=== PATIENT | male | born 1965 | race African-American/Black ===

== ENCOUNTER 2017-12-30 13:10 | Outpatient (CLI) | payer OTHER ==
--- NOTE | 2017-12-30 15:01 | MRI ---
LEFT KNEE MRI WITHOUT IV CONTRAST: History: 52-year-old male with history of degenerative disease of knee, left knee pain for five years, worseni ng over the last two years. Technique: Multiplanar, multisequence MRI examination of the left knee is performed. FINDINGS: There is very severe arthrosis and degenerative changes of all three compartments with total cartilag e loss of the medial compartment with some minimal subchondral cystic changes. There is also irregula r full thickness cartilage loss of the lateral tibial plateau and scattered areas within the femoral patellar compartment. There is very extensive hypertrophic osteophytosis involving all three compartm ents. There is some evidence for synovitis changes, particularly within the suprapatellar recess. The re is a somewhat loculated dilated popliteal hiatus containing multiple intraarticular bodies, one of which measures approximately 0.5 x 1.5 cm. There is probably an additional small intraarticular body in the medial suprapatellar recess. There is a very extensive complex slap tear of the medial menisc us involving almost the entire body and posterior horn with a displaced meniscal flap posteriorly ant erior to the posterior horn. Lateral meniscus demonstrates some free edge irregularity and intrasubst ance signal, evidence for degenerative change and focal fraying. Minimal intraosseous signal change i n the medial aspect of the intercondylar notch with adjacent marrow edema, evidence for an intraosseo us ganglial cyst. IMPRESSION: Severe tricompartment arthrosis and degenerative changes with full thickness irregular cartilage loss and very extensive hypertrophic osteophytosis, the cartilage loss is most marked in the medial beverley rtment. Extensive complex slap tear of the medial meniscus. Lateral meniscal fraying and degenerative change. Dilated multiloculated appearing popliteal hiatal containing several intraarticular bodies w ith at least one other intraarticular body noted in the medial popliteal recess. Small interosseous g anglial cyst noted in the posterior tibial intercondylar eminence near the posterior cruciate ligamen t and evidence for an intraosseous ganglial cyst with some very minimal adjacent marrow edema. POS: [facility]
== END 2017-12-30 13:11 | disposition home or self-care (01) ==
LOC: BICMRI 13:10
PROVIDERS: ATTEND Internal Medicine
DX: M17.12 Unilateral primary osteoarthritis, left knee (principal); M25.561 Pain in right knee; M25.562 Pain in left knee; M25.762 Osteophyte, left knee; S83.242A Other tear of medial meniscus, current injury, left knee, initial encounter; M67.462 Ganglion, left knee; R60.0 Localized edema

== ENCOUNTER 2018-05-02 00:23 | Outpatient (CLI) | payer OTHER ==
[2018-05-02 12:27] LABS: Hemoglobin 15.2 g/dL (14.0-18.0); Mean Corpuscular HGB CONC 33.3 g/dL (32.0-36.0); Mean Corpuscular Hemoglobin 29.2 pg (27.0-31.0); Mean Corpuscular Volume 87.8 fL (78.0-98.0); Mean Platelet Volume 8.9 fL (7.4-10.4); Platelet Count 218 thou/uL (130-400); RBC Distribution Width 12.2 % (11.5-14.5); Red Blood Cell (RBC) Count 5.22 mill/uL (4.70-6.10); White Blood Cell (WBC) Count 8.2 thou/uL (4.8-10.8)
[2018-05-02 12:31] LABS: Anion Gap 14 mmol/L (10-20); BUN (Urea Nitrogen) 12 mg/dL (8.4-25.7); Calc. Creatinine Clearance 0 mL/min (70-130); Calcium 9.2 mg/dL (7.8-10.44); Carbon Dioxide 22 mmol/L (22-29); Chloride 103 mmol/L (98-107); Estimated GFR-MDRD 89; Glucose 254 mg/dL (70-105); Potassium 3.7 mmol/L (3.5-5.1); Sodium 135 mmol/L (136-145)
[2018-05-02 12:33] LABS: Bilirubin Negative (Negative); Blood, Urine Negative (Negative); Clarity CLEAR (Clear); Glucose, Urine (Dipstick) >=1000 mg/dL (Negative); Leukocyte Negative (Negative); Nitrite Negative (Negative); Protein, Urine (Dipstick) Negative (Neg-Trace); Specific Gravity, Urine 1.011 (1.002-1.036); Urobilinogen 0.2 mg/dL (0.2-1.0)
[2018-05-02 12:36] LABS: Bacteria/HPF None Seen HPF (None Seen); Hyaline Casts/LPF 0-3 HYALINE CAST LPF (0-3 Hyaline); Pathc Cast-AUWi Flag 0.43 (0-2.49); RBC/HPF None Seen HPF (0-3); Squamous Epithelial None Seen HPF (0-3); WBC/HPF None Seen HPF (0-3)
--- NOTE | 2018-05-03 07:45 | EKG ---
Test Reason : Blood Pressure : / mmHG Vent. Rate : 069 BPM Atrial Rate : 069 BPM P-R Int : 158 ms QRS Dur : 088 ms QT Int : 430 ms P-R-T Axes : 056 036 055 degrees QTc Int : 460 ms Normal sinus rhythm Normal ECG No previous ECGs available Confirmed by BERNARDA SHABAZZ ([id number]) on 05/03/2018 7:45:36 AM Referred By: SANCHEZ Confirmed By:BERNARDA SHABAZZ
== END 2018-05-02 00:24 | disposition home or self-care (01) ==
LOC: LABBT 00:23
PROVIDERS: ATTEND Orthopaedic Surgery
DX: Z01.818 Encounter for other preprocedural examination (principal); M17.12 Unilateral primary osteoarthritis, left knee
CPT/HCPCS: 80048; 81001; 85027; 87081; 93005; 93010

== ENCOUNTER 2018-07-06 08:43 | Outpatient (CLI) | payer OTHER ==
[2018-07-06 09:15] LABS: Hemoglobin 15.5 g/dL (14.0-18.0); Mean Corpuscular HGB CONC 32.5 g/dL (32.0-36.0); Mean Corpuscular Volume 89.1 fL (78.0-98.0); Mean Platelet Volume 8.2 fL (7.4-10.4); Platelet Count 217 thou/uL (130-400); RBC Distribution Width 12.9 % (11.5-14.5); Red Blood Cell (RBC) Count 5.36 mill/uL (4.70-6.10); White Blood Cell (WBC) Count 11.8 thou/uL (4.8-10.8)
[2018-07-06 09:19] LABS: Bilirubin Negative (Negative); Blood, Urine Negative (Negative); Clarity CLEAR (Clear); Glucose, Urine (Dipstick) Negative (Negative); Leukocyte Negative (Negative); Nitrite Negative (Negative); Protein, Urine (Dipstick) Negative (Neg-Trace); Specific Gravity, Urine 1.025 (1.002-1.036); Urobilinogen 0.2 mg/dL (0.2-1.0); pH, Urine 5.5 (5.0-9.0)
[2018-07-06 09:22] LABS: Bacteria/HPF None Seen HPF (None Seen); Hyaline Casts/LPF 0-3 HYALINE CAST LPF (0-3 Hyaline); Pathc Cast-AUWi Flag 0.27 (0-2.49); RBC/HPF 0-3 HPF (0-3); Squamous Epithelial 0-3 HPF (0-3); WBC/HPF 0-3 HPF (0-3)
[2018-07-06 09:37] LABS: Anion Gap 11 mmol/L (10-20); BUN (Urea Nitrogen) 16 mg/dL (8.4-25.7); Calc. Creatinine Clearance 0 mL/min (70-130); Calcium 9.4 mg/dL (7.8-10.44); Carbon Dioxide 30 mmol/L (22-29); Chloride 101 mmol/L (98-107); Estimated GFR-MDRD 80; Glucose 128 mg/dL (70-105); Potassium 3.7 mmol/L (3.5-5.1); Sodium 138 mmol/L (136-145)
[2018-07-06 09:54] LABS: Eosinophils 1 % (0-10); Lymphocytes 25 % (21-51); MDiff Complete? YES; Monocytes 7 % (0-10); Neutrophil 66 % (42-75); Platelet Morphology Comment Appears Adequate; Polychromasia SLIGHT = 2-3 cells (100X) (0-2/hpf); Reactive Lymphocytes 1 % (0-10)
== END 2018-07-06 08:44 | disposition home or self-care (01) ==
LOC: LABBT 08:43
PROVIDERS: ATTEND Orthopaedic Surgery
DX: Z01.812 Encounter for preprocedural laboratory examination (principal); M17.12 Unilateral primary osteoarthritis, left knee
CPT/HCPCS: 80048; 81001; 85007; 85027

== ENCOUNTER 2018-07-07 08:45 | Inpatient (IN) | payer OTHER ==
[2018-07-06 08:58] VITALS: BMI 41.6
[2018-07-19] MEDS ORDERED: Sodium Chloride 0.9% 100 ML ONE ×2 (06:08→10:04)
[2018-07-19] MEDS ORDERED: Tranexamic Acid 1,000 MG/10 ML VIAL ONE ×2 (06:08→10:03)
[2018-07-19] MEDS ORDERED: Fentanyl 100 MCG/2 ML VIAL ONE ×5 (06:24→10:21)
[2018-07-19] MEDS ORDERED: Midazolam HCl 2 mg/2 ml Vial ONE (06:24)
[2018-07-19] MEDS ORDERED: Levofloxacin 500 mg/D5W 100 ml Premix Bag ONE (06:39)
[2018-07-19] MEDS ORDERED: Clindamycin/D5W 900 mg/50 ml Premix Bag ONE (06:39)
[2018-07-19] MEDS ORDERED: traMADol HCl 50 MG TAB PO PRN ×2 (07:08→09:27)
[2018-07-19] MEDS ORDERED: Ropivacaine HCl/PF 250 ML in Premix Bag 1 BAG NERVE BLCK SCH (07:08)
[2018-07-19] MEDS ORDERED: Ondansetron PF 4 MG/2 ML Vial IVP PRN ×2 (07:08→09:27)
[2018-07-19] MEDS ORDERED: Fentanyl 100 MCG/2 ML VIAL SLOW IVP PRN ×2 (07:08→09:27)
[2018-07-19] MEDS ORDERED: Zolpidem Tartrate 5 MG TAB PO PRN ×2 (07:08→09:27)
[2018-07-19] MEDS ORDERED: HYDROcodone/Acetaminophen 10/325 mg Tablet PO PRN ×3 (07:08→09:27)
[2018-07-19] MEDS ORDERED: Promethazine HCl 25 MG/ML VIAL IM PRN ×2 (07:08→09:27)
[2018-07-19] MEDS ORDERED: Bupivacaine/Epinephrine 0.25% 30 ML VIAL ONE (07:27)
[2018-07-19] MEDS ORDERED: diphenhydrAMINE 25 MG CAP PO PRN (09:27)
[2018-07-19] MEDS ORDERED: Acetaminophen 325 MG TAB PO PRN (09:27)
[2018-07-19] MEDS ORDERED: Tranexamic Acid 1,000 MG in Sodium Chloride 0.9% 100 ML IVPB SCH (09:45)
--- NOTE | 2018-07-19 09:55 | RAD ---
Left knee 2 view CLINICAL HISTORY: Total knee replacement, postoperative evaluation FINDINGS: Left knee arthroplasty is in place without hardware complication. Postprocedural soft tissu e findings are seen. IMPRESSION: Postoperative left knee, without acute hardware complication.
[2018-07-19] MEDS: Ketorolac Tromethamine 30 MG/ML VIAL IVP SCH ×3 (11:07→23:41)
[2018-07-19] MEDS ORDERED: Aspirin 81 mg Enteric Coated Tablet PO SCH (11:15)
[2018-07-19] MEDS: Clindamycin/D5W 900 MG in Premix Bag 1 BAG IVPB SCH ×2 (13:46→20:21)
[2018-07-19] MEDS ORDERED: Ketorolac Tromethamine 30 MG/ML VIAL IVP SCH (14:00)
[2018-07-19] MEDS ORDERED: Ropivacaine 0.2% HCl/PF (40 MG/20 ML VIAL) ONE (14:15)
[2018-07-19] MEDS ORDERED: Ropivacaine 0.5% HCl/PF (150 MG/30 ML VIAL) ONE (14:15)
--- NOTE | 2018-07-19 14:20 | HP ---
HISTORY OF PRESENT ILLNESS: Mr. Rodriges is a pleasant 53-year-old male with left knee pain, history of gastric sleeve, history of stroke, disabled who desires pain relief. Conservative measures failed. Pain from zero to 10, 10/10 with ambulation. The patient is walking and can only walk short distances with pain. PAST MEDICAL HISTORY: Includes hypertension, TIA/stroke, previous eye procedures. PAST SURGICAL HISTORY: Shoulder surgery, left gastric sleeve. ALLERGIES: PENICILLIN. MEDICATIONS: Include: 1. Aspirin. 2. Gabapentin. 3. Hydrochlorothiazide/lisinopril. 4. Metformin. 5. Tramadol. SOCIAL HISTORY: Disabled. The patient is nonsmoker. History of no current alcohol. PHYSICAL EXAMINATION: GENERAL: Alert and oriented male, in no acute distress. Resting in bed. EXTREMITIES: Left lower extremity; 0 to 120. Small effusion. Moderate varus angulation. Tender to palpation. He has brisk cap refill. Palpable dorsalis pedis pulse. Sensation and motor intact distally. Able to straight leg raise. IMAGING STUDIES: X-ray showing tricompartmental osteoarthritis of the knee. IMPRESSION: Left knee osteoarthritis with above medical comorbidities. ASSESSMENT AND PLAN: The patient will be taken to the OR for left total knee arthroplasty. I discussed with the patient risks and benefits of surgery, pain, scar, bleeding, infection, damage to vital structures, need for further surgery, blood clots, loss of life or limb. The patient understood the risks and benefits and elected to proceed left total knee arthroplasty. The patient received clindamycin, vancomycin, Levaquin preoperatively. On-call to the OR n.p.o., He will be discharged home with outpatient therapy. Job ID: [id number] [facility]
[2018-07-19] MEDS ORDERED: PROPOFOL 200 MG/20 ML VIAL ONE (14:38)
[2018-07-19] MEDS ORDERED: Rocuronium Bromide 10 MG/ML (10ML VIAL) ONE (14:38)
[2018-07-19] MEDS ORDERED: Ondansetron PF 4 MG/2 ML Vial ONE (14:38)
[2018-07-19] MEDS ORDERED: ePHEDrine 50 MG/ML VIAL ONE (14:38)
[2018-07-19] MEDS ORDERED: Ketorolac Tromethamine 30 MG/ML VIAL ONE (14:38)
[2018-07-19] MEDS ORDERED: Dextrose 5% in Water 1,000 ML IV PRN (16:39)
[2018-07-19] MEDS ORDERED: HumaLOG 300 UNITS/3 ML VIAL SC PRN (16:39)
[2018-07-19] MEDS ORDERED: Dextrose 50% Abboject 50 ML SYRINGE SLOW IVP PRN (16:39)
--- NOTE | 2018-07-19 17:28 | PRG ---
DATE OF SERVICE: 07/19/2018 SUBJECTIVE: Mr. Rodriges is a very pleasant 53-year-old male with past medical history significant for prior CVA in 2002 with resulting right upper and lower extremity weakness, untreated obstructive sleep apnea, type 2 diabetes mellitus, and obesity, who presented to the hospital for elective left total knee arthroplasty with Dr. Aguirre. The patient underwent his procedure this morning. He was seen postoperatively on the floor. He denies any chest pain or shortness of breath. He denies any palpitations. He has no nausea. He states that his pain is well under control and currently rates it as a 3. The patient has been up out of his bed twice since his procedure. He has no complaints at this time. OBJECTIVE: VITAL SIGNS: Blood pressure 148/82, pulse is 62, temp 97.5, O2 saturation is 95% on room air. GENERAL: The patient is a moderately obese male, resting comfortably in bed, in no acute distress. HEENT: Head, atraumatic and normocephalic. Mucous membranes are moist. Extraocular movements intact. NECK: Supple. No lymphadenopathy. No JVD. CV: S1 and S2. Regular rate and rhythm. No appreciable murmurs, rubs, or gallops. LUNGS: Regular respiratory rate and pattern. Clear to auscultation bilaterally. ABDOMEN: Positive bowel sounds. Soft, nontender. Mildly obese. No masses. EXTREMITIES: No appreciable pitting edema. The left knee is wrapped and bandages in place. NEUROLOGIC: Cranial nerves 2 through 12 are grossly intact. The patient does have some mild right-sided weakness, which is chronic known finding for him. LABORATORY DATA: From July 06, 2018, white blood cell count 11.8, hemoglobin 15.5, hematocrit 47.7, platelet count is 217. Sodium 138, potassium 3.7, chloride 101 , BUN 16, creatinine 0.98, glucose 128. ASSESSMENT: 1. Status post left total knee arthroplasty with Dr. Aguirre today. 2. Type 2 diabetes mellitus. 3. Prior cerebrovascular accident affecting right upper and lower extremity in 2002. 4. Untreated sleep apnea. 5. Hypertension. PLAN: We will continue current pain management regimen as outlined by Dr. Aguirre. I will add a.c. and h.s. Accu-Cheks, along with mild sliding scale insulin. We will continue the patient's home blood pressure medication regimen. I will also continue aspirin. I did have a long discussion with the patient regarding why he is not on a statin at this time. He cannot recall why he is not on a statin, but I will obtain a CMP in the morning and certainly a low-dose statin would be indicated in this patient given his previous history of stroke along with his diabetes. We will continue to follow this patient along with you. The care of this patient has been discussed with Dr. Carlson, who agrees with the above. Job ID: [id number] [facility]
[2018-07-19] MEDS: Dextrose 5 %-0.45 % NaCl 1,000 ML IV SCH ×2 (18:19→20:50)
[2018-07-19] MEDS: traMADol HCl 50 MG TAB PO PRN (18:19)
[2018-07-19] MEDS: Aspirin 81 mg Enteric Coated Tablet PO SCH (20:20)
[2018-07-19] MEDS ORDERED: metFORMIN 500 MG TAB PO SCH (22:45)
[2018-07-20] MEDS: traMADol HCl 50 MG TAB PO PRN ×4 (02:48→20:30)
[2018-07-20 05:14] LABS: Mean Corpuscular HGB CONC 32.4 g/dL (32.0-36.0); Mean Corpuscular Hemoglobin 28.9 pg (27.0-31.0); Mean Corpuscular Volume 89.2 fL (78.0-98.0); Mean Platelet Volume 8.7 fL (7.4-10.4); Platelet Count 150 thou/uL (130-400); RBC Distribution Width 12.4 % (11.5-14.5); Red Blood Cell (RBC) Count 4.15 mill/uL (4.70-6.10); White Blood Cell (WBC) Count 11.2 thou/uL (4.8-10.8)
[2018-07-20 05:32] LABS: ALT (SGPT) Less than 7 U/L (8-55); AST (SGOT) 10 U/L (5-34); Albumin 3.3 g/dL (3.5-5.0); Alkaline Phosphatase 62 U/L (40-150); Anion Gap 11 mmol/L (10-20); BUN (Urea Nitrogen) 15 mg/dL (8.4-25.7); Bilirubin, Total 1.2 mg/dL (0.2-1.2); Calc. Creatinine Clearance 203 mL/min (70-130); Calcium 8.3 mg/dL (7.8-10.44); Carbon Dioxide 25 mmol/L (22-29); Chloride 101 mmol/L (98-107); Estimated GFR-MDRD 88; Globulin 2.4 g/dL (2.4-3.5); Glucose 138 mg/dL (70-105); Potassium 3.8 mmol/L (3.5-5.1); Protein, Total 5.7 g/dL (6.0-8.3); Sodium 133 mmol/L (136-145)
[2018-07-20] MEDS: Ketorolac Tromethamine 30 MG/ML VIAL IVP SCH ×4 (05:54→23:30)
[2018-07-20] MEDS: Dextrose 5 %-0.45 % NaCl 1,000 ML IV SCH ×2 (05:55→14:38)
[2018-07-20] MEDS: Aspirin 81 mg Enteric Coated Tablet PO SCH ×2 (08:04→20:28)
[2018-07-20] MEDS: Lisinopril 10 MG TAB PO SCH (08:04)
[2018-07-20] MEDS: Hydrochlorothiazide 25 MG TAB PO SCH (08:04)
[2018-07-20] MEDS: Ferrous Gluconate 324 MG TAB PO SCH ×2 (08:05→17:43)
[2018-07-20] MEDS: Senokot S 8.6-50 MG TAB PO SCH ×2 (08:05→20:27)
[2018-07-20] MEDS: Multivitamin W/ Minerals 1 TAB PO SCH (08:05)
--- NOTE | 2018-07-20 08:40 | OP ---
DATE OF PROCEDURE: 07/19/2018 PREOPERATIVE DIAGNOSIS: Left knee osteoarthritis. POSTOPERATIVE DIAGNOSIS: Left knee osteoarthritis. PROCEDURE PERFORMED: Left total knee arthroplasty. STATIONARY ENGINEER: Taye Arguelles PA-C. ANESTHESIOLOGIST: Dr. Garcia. ANESTHESIA: The patient received a general endotracheal intubation with adductor canal, single shot sciatic. ESTIMATED BLOOD LOSS: 100 mL. TOURNIQUET TIME: 73 minutes at 300 mmHg. ANTIBIOTICS: Clindamycin 900, Levaquin 500, vancomycin 2 g. The patient received TXA 1 g. IMPLANTS: Jase Triathlon size 7 CR femur, size 7 x 11 mm CS insert, triathlon X3, a triathlon tibial base plate size 7, and A32 patella. COMPLICATIONS: None. HISTORY OF PRESENT ILLNESS: Mr. Rodriges is a 53-year-old male with multiple medical problems, who has obesity, bariatric surgery, diabetes, history of hypertension, stroke in the past. The patient had left knee osteoarthritis that affected the patient's ability to walk and difficulty with mobility. I discussed with the patient risks and benefits of left total knee arthroplasty include pain, scar, bleeding, infection, damage to vital structures, decreased range of motion and strength, nonunion, malunion, fracture above and below, need for revision, loss of life or limb. He understood the risks and benefits and elected to proceed. DESCRIPTION OF PROCEDURE: Time-out was performed designating the patient's left lower extremity as an operative site based on site, consents, and marking. After time-out, the patient's lower extremity was prepped and draped in sterile fashion. The patient had an anterior incision medial parapatellar approach, excised fat pad, medial soft tissue release, exposed distal femur. I mapped the femur, cut 0 degrees of varus and valgus, 4 degrees of slope 9 and 9. We then placed our 3-degree external rotation guide, pinned into position, sized to a 7, cut to size 7, anterior, posterior, and chamfer cuts, removed the osteophytes. Then used our pickle fork, released the patient's PCL to expose the tibia. Exposed and cut, protecting with a pickle fork cut, mapped out the tibia cut at 0 degrees of varus and valgus 2 and 8 respectfully, removed osteophytes. We then placed a laminar control clerk food and beverage and removed the medial and lateral menisci osteophytes posteriorly, we exposed the tibia, placed our tibial tray inline with tibial tubercle anterior 1/3 down to the second ray. We pinned our poly into position. We then went in from 9 up to 11. We trialed the 11 and had good varus and valgus stability. Anterior-posterior drawer had good overall full extension, good flexion, and I liked the overall position of the tibial tray. We then drilled our lug, cut our keel for tibia, everted our patella, cut it down from 28 down to about 14 mm, placed the A32 patella. The patient's patella tracked well. We then washed. We cut our keel and drilled the lugs for femur removed, all implants washed, controlled the bleeding. We then everted, we placed our tibia in place, removed excess cement and placed our poly and cleaned up the femur, cemented our femur in place, removed excess cement, placed our A32 patella, removed excess cement. Next, we flexed the knee and ensured we had removed all the excess cement and had good overall position of the trays, we then removed, washed. We closed the medial patellar arthrotomy with #2 Vicryl, 2 Quill, 0 Quill, 2-0 Quill and glue. The patient will be admitted per [facility] protocol, receive antibiotics postoperative, followup in house. Job ID: [id number]
--- NOTE | 2018-07-20 11:43 | PDOC.PN ---
- Subjective Encounter Start Date: 07/20/18 Encounter Start Time: 08:00 -: old records requested/rev Patient seen and examined. No new complaints. No overnight events - Objective MAR Reviewed: Yes Vital Signs & Weight: Vital Signs (12 hours) Temp Pulse Resp BP BP Pulse Ox 07/20/18 08:24 99.8 F H 67 20 151/92 H 98 07/20/18 08:04 151/92 H 07/20/18 04:00 97.9 F 67 18 133/73 95 07/20/18 00:46 99.4 F 73 18 133/66 94 L Weight Admit Weight 333 lb Weight 333 lb I&O: 07/19/18 07/20/18 07/21/18 06:59 06:59 06:59 Intake Total 2370 Output Total 1250 Balance 1120 Result Diagrams: 07/20/18 04:47 07/20/18 04:47 Additional Labs: Accuchecks 07/20/18 07/19/18 06:04 21:05 POC Glucose 151 H 280 H Phys Exam - Physical Examination Constitutional: NAD HEENT: PERRLA, moist MMs, sclera anicteric Neck: no JVD, supple Respiratory: no wheezing, no rales, no rhonchi Cardiovascular: RRR, no significant murmur, no rub Gastrointestinal: soft, non-tender, no distention, positive bowel sounds obesity+ left knee with dressing Neurological: non-focal, normal sensation, moves all 4 limbs Lymphatic: no nodes Psychiatric: normal affect, A&O x 3 Skin: no rash, normal turgor Dx/Plan (1) Status post total left knee replacement Code(s): Z96.652 - PRESENCE OF LEFT ARTIFICIAL KNEE JOINT Status: Acute (2) Diabetes type 2, controlled Code(s): E11.9 - TYPE 2 DIABETES MELLITUS WITHOUT COMPLICATIONS Status: Chronic (3) H/O: CVA (cerebrovascular accident) Code(s): Z86.73 - PRSNL HX OF TIA (TIA), AND CEREB INFRC W/O RESID DEFICITS Status: Chronic (4) Hypertension Code(s): I10 - ESSENTIAL (PRIMARY) HYPERTENSION Status: Chronic (5) Morbid obesity with BMI of 40.0-44.9, adult Code(s): E66.01 - MORBID (SEVERE) OBESITY DUE TO EXCESS CALORIES; Z68.41 - BODY MASS INDEX (BMI) 40.0-44.9, ADULT Status: Chronic (6) MICHELLE (obstructive sleep apnea) Code(s): G47.33 - OBSTRUCTIVE SLEEP APNEA (ADULT) (PEDIATRIC) Status: Chronic (7) Osteoarthritis Code(s): M19.90 - UNSPECIFIED OSTEOARTHRITIS, UNSPECIFIED SITE Status: Chronic - Plan cont current plan of care, PT/OT * medication reviewed as below * symptomatic treatment * continue aspirin for DVT prophylaxis * home medication * medically stable. Review of Systems - Review of Systems ENT: negative: Ear Pain, Ear Discharge, Nose Pain, Nose Discharge, Nose Congestion, Mouth Pain, Mouth Swelling, Throat Pain, Throat Swelling, Other Respiratory: negative: Cough, Dry, Shortness of Breath, Hemoptysis, SOB with Excertion, Pleuritic Pain, Sputum, Wheezing Cardiovascular: negative: chest pain, palpitations, orthopnea, paroxysmal nocturnal dyspnea, edema, light headedness, other Gastrointestinal: negative: Nausea, Vomiting, Abdominal Pain, Diarrhea, Constipation, Melena, Hematochezia, Other Genitourinary: negative: Dysuria, Frequency, Incontinence, Hematuria, Retention , Other Musculoskeletal: negative: Neck Pain, Shoulder Pain, Arm Pain, Back Pain, Hand Pain, Leg Pain, Foot Pain, Other - Medications/Allergies Allergies/Adverse Reactions: Allergies Allergy/AdvReac Type Severity Reaction Status Date / Time Penicillins Allergy Severe Anaphylaxis Verified 05/02/18 10:47 Medications: Current Medications Acetaminophen (Tylenol) 650 mg PO Q4H PRN PRN Reason: Headache/Fever or Pain Hydrocodone Bitart/Acetaminophen ([place] 10/325) 1 tab PO Q4H PRN PRN Reason: Pain (1-3) Hydrocodone Bitart/Acetaminophen ([place] 10/325) 2 tab PO Q4H PRN PRN Reason: PAIN (4-6) Aspirin (Ecotrin) 81 mg PO BID [facility] Last Admin: 07/20/18 08:04 Dose: 81 mg Dextrose/Water (Dextrose 50%) 25 gm SLOW IVP PRN PRN PRN Reason: Hypoglycemia Diphenhydramine HCl (Benadryl) 25 mg PO Q6H PRN PRN Reason: Itching Fentanyl (Sublimaze) 50 mcg SLOW IVP Q1H PRN PRN Reason: breakthrough pain Ferrous Gluconate (Fergon) 324 mg PO BID-[facility] Last Admin: 07/20/18 08:05 Dose: 324 mg Glucagon (Glucagon) 1 mg IM PRN PRN PRN Reason: Hypoglycemia Hydrochlorothiazide (Hydrochlorothiazide) 12.5 mg PO DAILY [facility] Last Admin: 07/20/18 08:04 Dose: 12.5 mg Ropivacaine 250 ml/ Device 250 mls @ 10 mls/hr NERVE BLCK INF [facility] Last Admin: 07/20/18 11:01 Dose: 250 mls Dextrose/Sodium Chloride (D5 1/2 Ns) 1,000 mls @ 100 mls/hr IV .Q10H [facility] Last Admin: 07/20/18 05:55 Dose: Not Given Dextrose/Water (D5w) 1,000 mls @ 0 mls/hr IV .Q0M PRN PRN Reason: Hypoglycemia Insulin Human Lispro (Humalog) 0 units SC .MILD SLIDING SCALE PRN PRN Reason: Mild Correctional Scale Iron/Minerals/Multivitamins (Theragran M) 1 tab PO DAILY [facility] Last Admin: 07/20/18 08:05 Dose: 1 tab Ketorolac Tromethamine (Toradol) 30 mg IVP Q6HR [facility] Stop: 07/21/18 06:01 Last Admin: 07/20/18 05:54 Dose: 30 mg Lisinopril (Zestril) 10 mg PO DAILY [facility] Last Admin: 07/20/18 08:04 Dose: 10 mg Metformin HCl (Glucophage) 500 mg PO QPM [facility] Ondansetron HCl (Zofran) 4 mg IVP Q6H PRN PRN Reason: Nausea/Vomiting Promethazine HCl (Phenergan) 12.5 mg IM Q4H PRN PRN Reason: Nausea/Vomiting Senna/Docusate Sodium (Senokot S) 2 tab PO BID [facility] Last Admin: 07/20/18 08:05 Dose: 2 tab Sodium Chloride (Flush - Normal Saline) 10 ml IVF PRN PRN PRN Reason: Saline Flush Sodium Chloride (Flush - Normal Saline) 10 ml IVF Q12HR [facility] Last Admin: 07/20/18 08:06 Dose: 10 ml Tramadol HCl (Ultram) 50 mg PO Q6H PRN PRN Reason: Mild Pain (1-3) Tramadol HCl (Ultram) 100 mg PO Q6H PRN PRN Reason: Moderate Pain 4-6 Last Admin: 07/20/18 08:06 Dose: 100 mg Zolpidem Tartrate (Ambien) 5 mg PO HSPRN PRN PRN Reason: Insomnia
[2018-07-20] MEDS: metFORMIN 500 MG TAB PO SCH (20:27)
[2018-07-21] MEDS: Dextrose 5 %-0.45 % NaCl 1,000 ML IV SCH ×3 (02:24→22:12)
[2018-07-21] MEDS: traMADol HCl 50 MG TAB PO PRN (03:20)
[2018-07-21 05:25] LABS: Hemoglobin 11.9 g/dL (14.0-18.0); Mean Corpuscular HGB CONC 33.8 g/dL (32.0-36.0); Mean Corpuscular Hemoglobin 30.3 pg (27.0-31.0); Mean Corpuscular Volume 89.4 fL (78.0-98.0); Mean Platelet Volume 8.7 fL (7.4-10.4); Platelet Count 149 thou/uL (130-400); RBC Distribution Width 12.7 % (11.5-14.5); Red Blood Cell (RBC) Count 3.93 mill/uL (4.70-6.10); White Blood Cell (WBC) Count 12.1 thou/uL (4.8-10.8)
[2018-07-21] MEDS: Ketorolac Tromethamine 30 MG/ML VIAL IVP SCH (05:31)
[2018-07-21] MEDS: Lisinopril 10 MG TAB PO SCH (07:56)
[2018-07-21] MEDS: Multivitamin W/ Minerals 1 TAB PO SCH (07:56)
[2018-07-21] MEDS: Hydrochlorothiazide 25 MG TAB PO SCH (07:57)
[2018-07-21] MEDS: Senokot S 8.6-50 MG TAB PO SCH ×2 (07:57→20:18)
[2018-07-21] MEDS: Aspirin 81 mg Enteric Coated Tablet PO SCH ×2 (07:57→20:18)
[2018-07-21] MEDS: Ferrous Gluconate 324 MG TAB PO SCH ×2 (07:58→16:02)
--- NOTE | 2018-07-21 10:03 | DIS ---
DATE OF ADMISSION: 07/19/2018 DATE OF DISCHARGE: 07/21/2018 DISCHARGE DISPOSITION: Home. PRIMARY DISCHARGE DIAGNOSIS: Status post left total knee replacement. SECONDARY DISCHARGE DIAGNOSES: Osteoarthritis, obstructive sleep apnea, morbid obesity, hypertension, history of cerebrovascular accident, diabetes type 2. PRIMARY PROCEDURE/OPERATION: Left total knee replacement. RADIOLOGICAL INVESTIGATION: Knee x-ray. SIGNIFICANT LABORATORY DATA: Hemoglobin 11.9, creatinine 0.90. DISCHARGE MEDICATIONS: 1. Aspirin 81 mg p.o. b.i.d. for DVT prophylaxis. 2. Gabapentin 600 mg p.o. b.i.d. 3. Hydrochlorothiazide 12.5 mg daily. 4. Lisinopril 10 mg daily. 5. Metformin 500 mg daily. 6. Tramadol 50 mg p.o. b.i.d. p.r.n., pain medication as per primary team. CONTRAINDICATION: None. CODE STATUS: Full code. INPATIENT SPORTS MEDICINE SPECIALIST: Dr. Aguirre was primary. Sound Team was following for medical management. TEST RESULTS PENDING ON DISCHARGE: None. ALLERGIES: PENICILLIN. DISCHARGE PLAN: Posthospital, the patient will follow up with Dr. Aguirre on August 09, 2018, at 1:00 p.m. HOSPITAL COURSE: A 53-year-old male, who was admitted by Dr. Aguirre for left total knee replacement, which was done on July 19, 2018. Postoperatively, the patient was given aspirin for DVT prophylaxis. He had no block. He did very well with a [facility] [place] protocol treatment. While in hospital, we continued all his home medication as well as on discharge, he will continue aspirin for DVT prophylaxis. The patient is planned for discharge today. Job ID: [id number]
--- NOTE | 2018-07-21 10:09 | PDOC.PN ---
- Subjective Encounter Start Date: 07/21/18 Encounter Start Time: 08:00 Patient seen and examined. No new complaints. No overnight events - Objective MAR Reviewed: Yes Vital Signs & Weight: Vital Signs (12 hours) Temp Pulse Resp BP Pulse Ox 07/21/18 07:49 98.7 F 62 16 137/85 94 L 07/21/18 03:22 98.2 F 66 18 154/91 H 94 L 07/21/18 00:01 98.2 F 64 16 138/80 96 Weight Admit Weight 333 lb Weight 333 lb I&O: 07/20/18 07/21/18 07/22/18 06:59 06:59 06:59 Intake Total 2370 2540 Output Total 1250 1450 Balance 1120 1090 Result Diagrams: 07/21/18 04:54 07/20/18 04:47 Additional Labs: Accuchecks 07/21/18 07/20/18 07/20/18 05:32 20:54 15:39 POC Glucose 153 H 181 H 167 H Phys Exam - Physical Examination Constitutional: NAD HEENT: PERRLA, moist MMs, sclera anicteric Neck: no JVD, supple Respiratory: no wheezing, no rales, no rhonchi Cardiovascular: RRR, no significant murmur, no rub Gastrointestinal: soft, non-tender, no distention, positive bowel sounds Musculoskeletal: no edema, pulses present Neurological: non-focal, normal sensation, moves all 4 limbs Lymphatic: no nodes Psychiatric: normal affect, A&O x 3 Skin: no rash, normal turgor Dx/Plan (1) Status post total left knee replacement Code(s): Z96.652 - PRESENCE OF LEFT ARTIFICIAL KNEE JOINT Status: Acute (2) Diabetes type 2, controlled Code(s): E11.9 - TYPE 2 DIABETES MELLITUS WITHOUT COMPLICATIONS Status: Chronic (3) H/O: CVA (cerebrovascular accident) Code(s): Z86.73 - PRSNL HX OF TIA (TIA), AND CEREB INFRC W/O RESID DEFICITS Status: Chronic (4) Hypertension Code(s): I10 - ESSENTIAL (PRIMARY) HYPERTENSION Status: Chronic (5) Morbid obesity with BMI of 40.0-44.9, adult Code(s): E66.01 - MORBID (SEVERE) OBESITY DUE TO EXCESS CALORIES; Z68.41 - BODY MASS INDEX (BMI) 40.0-44.9, ADULT Status: Chronic (6) MICHELLE (obstructive sleep apnea) Code(s): G47.33 - OBSTRUCTIVE SLEEP APNEA (ADULT) (PEDIATRIC) Status: Chronic (7) Osteoarthritis Code(s): M19.90 - UNSPECIFIED OSTEOARTHRITIS, UNSPECIFIED SITE Status: Chronic - Plan cont current plan of care * medication reviewed as below * symptomatic treatment * see discharge summery. Review of Systems - Review of Systems ENT: negative: Ear Pain, Ear Discharge, Nose Pain, Nose Discharge, Nose Congestion, Mouth Pain, Mouth Swelling, Throat Pain, Throat Swelling, Other Respiratory: negative: Cough, Dry, Shortness of Breath, Hemoptysis, SOB with Excertion, Pleuritic Pain, Sputum, Wheezing Cardiovascular: negative: chest pain, palpitations, orthopnea, paroxysmal nocturnal dyspnea, edema, light headedness, other Gastrointestinal: negative: Nausea, Vomiting, Abdominal Pain, Diarrhea, Constipation, Melena, Hematochezia, Other Genitourinary: negative: Dysuria, Frequency, Incontinence, Hematuria, Retention , Other Musculoskeletal: negative: Neck Pain, Shoulder Pain, Arm Pain, Back Pain, Hand Pain, Leg Pain, Foot Pain, Other - Medications/Allergies Allergies/Adverse Reactions: Allergies Allergy/AdvReac Type Severity Reaction Status Date / Time Penicillins Allergy Severe Anaphylaxis Verified 05/02/18 10:47 Medications: Current Medications Acetaminophen (Tylenol) 650 mg PO Q4H PRN PRN Reason: Headache/Fever or Pain Hydrocodone Bitart/Acetaminophen ([place] 10/325) 1 tab PO Q4H PRN PRN Reason: Pain (1-3) Hydrocodone Bitart/Acetaminophen ([place] 10/325) 2 tab PO Q4H PRN PRN Reason: PAIN (4-6) Aspirin (Ecotrin) 81 mg PO BID [facility] Last Admin: 07/21/18 07:57 Dose: 81 mg Dextrose/Water (Dextrose 50%) 25 gm SLOW IVP PRN PRN PRN Reason: Hypoglycemia Diphenhydramine HCl (Benadryl) 25 mg PO Q6H PRN PRN Reason: Itching Fentanyl (Sublimaze) 50 mcg SLOW IVP Q1H PRN PRN Reason: breakthrough pain Ferrous Gluconate (Fergon) 324 mg PO BID-[facility] Last Admin: 07/21/18 07:58 Dose: 324 mg Glucagon (Glucagon) 1 mg IM PRN PRN PRN Reason: Hypoglycemia Hydrochlorothiazide (Hydrochlorothiazide) 12.5 mg PO DAILY [facility] Last Admin: 07/21/18 07:57 Dose: 12.5 mg Ropivacaine 250 ml/ Device 250 mls @ 10 mls/hr NERVE BLCK INF [facility] Last Admin: 07/20/18 11:01 Dose: 250 mls Dextrose/Sodium Chloride (D5 1/2 Ns) 1,000 mls @ 100 mls/hr IV .Q10H [facility] Last Admin: 07/21/18 08:03 Dose: Not Given Dextrose/Water (D5w) 1,000 mls @ 0 mls/hr IV .Q0M PRN PRN Reason: Hypoglycemia Insulin Human Lispro (Humalog) 0 units SC .MILD SLIDING SCALE PRN PRN Reason: Mild Correctional Scale Iron/Minerals/Multivitamins (Theragran M) 1 tab PO DAILY [facility] Last Admin: 07/21/18 07:56 Dose: 1 tab Lisinopril (Zestril) 10 mg PO DAILY [facility] Last Admin: 07/21/18 07:56 Dose: 10 mg Metformin HCl (Glucophage) 500 mg PO QPM [facility] Last Admin: 07/20/18 20:27 Dose: 500 mg Ondansetron HCl (Zofran) 4 mg IVP Q6H PRN PRN Reason: Nausea/Vomiting Promethazine HCl (Phenergan) 12.5 mg IM Q4H PRN PRN Reason: Nausea/Vomiting Senna/Docusate Sodium (Senokot S) 2 tab PO BID [facility] Last Admin: 07/21/18 07:57 Dose: 2 tab Sodium Chloride (Flush - Normal Saline) 10 ml IVF PRN PRN PRN Reason: Saline Flush Sodium Chloride (Flush - Normal Saline) 10 ml IVF Q12HR [facility] Last Admin: 07/21/18 07:59 Dose: Not Given Tramadol HCl (Ultram) 50 mg PO Q6H PRN PRN Reason: Mild Pain (1-3) Tramadol HCl (Ultram) 100 mg PO Q6H PRN PRN Reason: Moderate Pain 4-6 Last Admin: 07/21/18 03:20 Dose: 100 mg Zolpidem Tartrate (Ambien) 5 mg PO HSPRN PRN PRN Reason: Insomnia
[2018-07-21] MEDS: HYDROcodone/Acetaminophen 10/325 mg Tablet PO PRN ×2 (10:19→16:01)
[2018-07-21] MEDS: metFORMIN 500 MG TAB PO SCH (20:18)
[2018-07-22] MEDS: HYDROcodone/Acetaminophen 10/325 mg Tablet PO PRN (02:41)
[2018-07-22 04:56] LABS: Hemoglobin 11.7 g/dL (14.0-18.0); Mean Corpuscular HGB CONC 33.4 g/dL (32.0-36.0); Mean Corpuscular Hemoglobin 29.8 pg (27.0-31.0); Mean Corpuscular Volume 89.3 fL (78.0-98.0); Platelet Count 154 thou/uL (130-400); RBC Distribution Width 12.5 % (11.5-14.5); Red Blood Cell (RBC) Count 3.94 mill/uL (4.70-6.10); White Blood Cell (WBC) Count 9.9 thou/uL (4.8-10.8)
[2018-07-22] MEDS: Lisinopril 10 MG TAB PO SCH (08:32)
[2018-07-22] MEDS: Hydrochlorothiazide 25 MG TAB PO SCH (08:32)
[2018-07-22] MEDS: Multivitamin W/ Minerals 1 TAB PO SCH (08:32)
[2018-07-22] MEDS: Senokot S 8.6-50 MG TAB PO SCH (08:32)
[2018-07-22] MEDS: Ferrous Gluconate 324 MG TAB PO SCH (08:33)
[2018-07-22] MEDS: Aspirin 81 mg Enteric Coated Tablet PO SCH (08:33)
[2018-07-22] MEDS: Dextrose 5 %-0.45 % NaCl 1,000 ML IV SCH (08:33)
--- NOTE | 2018-07-22 10:40 | PDOC.PN ---
- Subjective Encounter Start Date: 07/22/18 Encounter Start Time: 08:10 pt stayed in hospital as after nerve block removal still his left leg weak, he feels sensation - Objective MAR Reviewed: Yes Vital Signs & Weight: Vital Signs (12 hours) Temp Pulse Resp BP Pulse Ox 07/22/18 08:09 98.9 F 68 18 164/94 H 95 07/22/18 04:16 98.8 F 67 16 130/76 95 07/22/18 00:21 99.1 F 71 16 135/68 96 Weight Admit Weight 333 lb Weight 333 lb I&O: 07/21/18 07/22/18 07/23/18 06:59 06:59 06:59 Intake Total 2540 1200 Output Total 1450 2425 Balance 1090 -1225 Result Diagrams: 07/22/18 04:23 07/20/18 04:47 Additional Labs: Accuchecks 07/22/18 07/21/18 07/21/18 05:46 21:03 17:10 POC Glucose 141 H 215 H 114 H 07/21/18 12:19 POC Glucose 124 H Phys Exam - Physical Examination Constitutional: NAD HEENT: PERRLA, moist MMs, sclera anicteric Neck: no JVD, supple Respiratory: no wheezing, no rales, no rhonchi Cardiovascular: RRR, no significant murmur, no rub Gastrointestinal: soft, non-tender, no distention, positive bowel sounds Musculoskeletal: no edema, pulses present left leg weak Neurological: non-focal, normal sensation, moves all 4 limbs Lymphatic: no nodes Psychiatric: normal affect, A&O x 3 Skin: no rash, normal turgor Dx/Plan (1) Status post total left knee replacement Code(s): Z96.652 - PRESENCE OF LEFT ARTIFICIAL KNEE JOINT Status: Acute (2) Diabetes type 2, controlled Code(s): E11.9 - TYPE 2 DIABETES MELLITUS WITHOUT COMPLICATIONS Status: Chronic (3) H/O: CVA (cerebrovascular accident) Code(s): Z86.73 - PRSNL HX OF TIA (TIA), AND CEREB INFRC W/O RESID DEFICITS Status: Chronic (4) Hypertension Code(s): I10 - ESSENTIAL (PRIMARY) HYPERTENSION Status: Chronic (5) Morbid obesity with BMI of 40.0-44.9, adult Code(s): E66.01 - MORBID (SEVERE) OBESITY DUE TO EXCESS CALORIES; Z68.41 - BODY MASS INDEX (BMI) 40.0-44.9, ADULT Status: Chronic (6) MICHELLE (obstructive sleep apnea) Code(s): G47.33 - OBSTRUCTIVE SLEEP APNEA (ADULT) (PEDIATRIC) Status: Chronic (7) Osteoarthritis Code(s): M19.90 - UNSPECIFIED OSTEOARTHRITIS, UNSPECIFIED SITE Status: Chronic - Plan cont current plan of care * expecting his nerve block effect should wear off today and able to go home today * see my discharge summery from yesterday * medication reviewed as below * symptomatic treatment. Review of Systems - Review of Systems ENT: negative: Ear Pain, Ear Discharge, Nose Pain, Nose Discharge, Nose Congestion, Mouth Pain, Mouth Swelling, Throat Pain, Throat Swelling, Other Respiratory: negative: Cough, Dry, Shortness of Breath, Hemoptysis, SOB with Excertion, Pleuritic Pain, Sputum, Wheezing Cardiovascular: negative: chest pain, palpitations, orthopnea, paroxysmal nocturnal dyspnea, edema, light headedness, other Gastrointestinal: negative: Nausea, Vomiting, Abdominal Pain, Diarrhea, Constipation, Melena, Hematochezia, Other Genitourinary: negative: Dysuria, Frequency, Incontinence, Hematuria, Retention , Other Musculoskeletal: negative: Neck Pain, Shoulder Pain, Arm Pain, Back Pain, Hand Pain, Leg Pain, Foot Pain, Other Neurological: Weakness, Numbness. negative: Incoordination, Change in Speech, Confusion, Seizures, Other - Medications/Allergies Allergies/Adverse Reactions: Allergies Allergy/AdvReac Type Severity Reaction Status Date / Time Penicillins Allergy Severe Anaphylaxis Verified 05/02/18 10:47 Medications: Current Medications Acetaminophen (Tylenol) 650 mg PO Q4H PRN PRN Reason: Headache/Fever or Pain Hydrocodone Bitart/Acetaminophen ([place]ander 10/325) 1 tab PO Q4H PRN PRN Reason: Pain (1-3) Hydrocodone Bitart/Acetaminophen ([place]ander 10/325) 2 tab PO Q4H PRN PRN Reason: PAIN (4-6) Last Admin: 07/22/18 02:41 Dose: 2 tab Aspirin (Ecotrin) 81 mg PO BID LAURI Last Admin: 07/22/18 08:33 Dose: 81 mg Dextrose/Water (Dextrose 50%) 25 gm SLOW IVP PRN PRN PRN Reason: Hypoglycemia Diphenhydramine HCl (Benadryl) 25 mg PO Q6H PRN PRN Reason: Itching Fentanyl (Sublimaze) 50 mcg SLOW IVP Q1H PRN PRN Reason: breakthrough pain Ferrous Gluconate (Fergon) 324 mg PO BID-[facility] Last Admin: 07/22/18 08:33 Dose: 324 mg Glucagon (Glucagon) 1 mg IM PRN PRN PRN Reason: Hypoglycemia Hydrochlorothiazide (Hydrochlorothiazide) 12.5 mg PO DAILY [facility] Last Admin: 07/22/18 08:32 Dose: 12.5 mg Ropivacaine 250 ml/ Device 250 mls @ 10 mls/hr NERVE BLCK INF [facility] Last Admin: 07/20/18 11:01 Dose: 250 mls Dextrose/Sodium Chloride (D5 1/2 Ns) 1,000 mls @ 100 mls/hr IV .Q10H [facility] Last Admin: 07/22/18 08:33 Dose: Not Given Dextrose/Water (D5w) 1,000 mls @ 0 mls/hr IV .Q0M PRN PRN Reason: Hypoglycemia Insulin Human Lispro (Humalog) 0 units SC .MILD SLIDING SCALE PRN PRN Reason: Mild Correctional Scale Iron/Minerals/Multivitamins (Theragran M) 1 tab PO DAILY [facility] Last Admin: 07/22/18 08:32 Dose: 1 tab Lisinopril (Zestril) 10 mg PO DAILY [facility] Last Admin: 07/22/18 08:32 Dose: 10 mg Metformin HCl (Glucophage) 500 mg PO QPM [facility] Last Admin: 07/21/18 20:18 Dose: 500 mg Ondansetron HCl (Zofran) 4 mg IVP Q6H PRN PRN Reason: Nausea/Vomiting Promethazine HCl (Phenergan) 12.5 mg IM Q4H PRN PRN Reason: Nausea/Vomiting Senna/Docusate Sodium (Senokot S) 2 tab PO BID [facility] Last Admin: 07/22/18 08:32 Dose: 2 tab Sodium Chloride (Flush - Normal Saline) 10 ml IVF PRN PRN PRN Reason: Saline Flush Sodium Chloride (Flush - Normal Saline) 10 ml IVF Q12HR [facility] Last Admin: 07/22/18 08:39 Dose: Not Given Tramadol HCl (Ultram) 50 mg PO Q6H PRN PRN Reason: Mild Pain (1-3) Tramadol HCl (Ultram) 100 mg PO Q6H PRN PRN Reason: Moderate Pain 4-6 Last Admin: 07/21/18 03:20 Dose: 100 mg Zolpidem Tartrate (Ambien) 5 mg PO HSPRN PRN PRN Reason: Insomnia
[2018-07-22 13:13] VITALS: BP 162/97; TEMP 98
== END 2018-07-22 14:02 | disposition home or self-care (01) | DRG 470 ==
LOC: SURG A 07-19 05:40 → SJJU 07-19 10:24
PROVIDERS: ADMIT Orthopaedic Surgery; ATTEND Orthopaedic Surgery
PROC: 0SRD0J9 Replacement of Left Knee Joint with Synthetic Substitute, Cemented, Open Approach (ICD-10-PCS; principal; 2018-07-19)
DX: M17.12 Unilateral primary osteoarthritis, left knee (principal); I69.951 Hemiplegia and hemiparesis following unspecified cerebrovascular disease affecting right dominant side; Z68.41 Body mass index [BMI] 40.0-44.9, adult; I10 Essential (primary) hypertension; E11.9 Type 2 diabetes mellitus without complications; E66.01 Morbid (severe) obesity due to excess calories; G47.33 Obstructive sleep apnea (adult) (pediatric); Z79.82 Long term (current) use of aspirin; Z79.84 Long term (current) use of oral hypoglycemic drugs; Z98.84 Bariatric surgery status; Z88.0 Allergy status to penicillin
CPT/HCPCS: 36415; 36416; 80053; 85027; 86850; 86900; 86901; C1713; C1776; J1885; J1956; J2250; J2405; J2704; J2795; J3010; J3370; J3490; J7050; Q0163

== ENCOUNTER 2018-07-12 14:17 | Outpatient (CLI) | payer OTHER | END 2018-07-12 14:18 | disposition home or self-care (01) | LOC: LABBT 14:17 | PROVIDERS: ATTEND Orthopaedic Surgery | DX: Z01.812 Encounter for preprocedural laboratory examination (principal); M17.12 Unilateral primary osteoarthritis, left knee | CPT/HCPCS: 87081 ==

== ENCOUNTER 2018-11-29 13:19 | Outpatient (CLI) | payer OTHER ==
--- NOTE | 2018-11-29 17:11 | MRI ---
MRI OF BRAIN WITH AND WITHOUT CONTRAST: 11/29/18 INDICATIONS: Nontraumatic intracerebral hemorrhage. There are no comparison MRIs. No comparison CT. FINDINGS: Ventricles have normal size and position. There are scattered white matter hyperintensities seen in both cerebral hemispheres on FLAIR sequence which are nonspecific. No evidence of restricted diffusion. There is an area of volume loss with gliosis in the right cerebellum suggesting old cerebellar infarc t. There is no evidence of abnormal enhancement. Intracranial internal carotid arteries and cerebral art eries exhibit flow voids. Mild mucosal edema seen in the mastoid air cells bilaterally. Paranasal sinuses appear clear. IMPRESSION: 1. Volume loss with gliosis in the right cerebellum consistent with old cerebellar infarct. 2. Nonspecific white matter hyperintensities in both cerebral hemispheres probably related to ch ronic ischemic white matter change. 3. No evidence of acute infarct or other acute process. POS: OFF
== END 2018-11-29 13:20 | disposition home or self-care (01) ==
LOC: TBSIIMAG 13:19
PROVIDERS: ATTEND Psychiatry & Neurology Neurology
DX: I61.0 Nontraumatic intracerebral hemorrhage in hemisphere, subcortical (principal); Z86.73 Personal history of transient ischemic attack (TIA), and cerebral infarction without residual deficits
CPT/HCPCS: 70553

== ENCOUNTER 2019-05-10 10:04 | Outpatient (CLI) | payer OTHER ==
--- NOTE | 2019-05-10 10:55 | RAD ---
LUMBAR SPINE 3 VIEWS: Lateral views were obtained in neutral, flexion, and extension. INDICATION: Low back pain. FINDINGS: Lumbar vertebrae maintain normal height and alignment. There is loss of disk space at L5-S1. Facet hypertrophy is prominent at L4-5 and L5-S1. The L5-S1 level is suboptimally evaluated. Spot images of L5-S1 are recommended with routine lumbar exam. There is some evidence of a mild anterolisthesis of L5-S1. Posterior spondylolysis at L5-S1 cannot be excluded. No significant change in alignment with flexion or extension. IMPRESSION: Loss of disk space at L5-S1 with prominent posterior facet hypertrophy. There may be a mild anteroli sthesis, although this is not well evaluated. Recommend spot views at L5-S1 level with routine lumba r spine exam. POS: [facility]
== END 2019-05-10 10:05 | disposition home or self-care (01) ==
LOC: TBSIIMAG 10:04
PROVIDERS: ATTEND Neurological Surgery
DX: M54.5 Low back pain (principal)
CPT/HCPCS: 72100

== ENCOUNTER 2019-06-01 15:36 | Outpatient (CLI) | payer OTHER ==
--- NOTE | 2019-06-01 15:56 | RAD ---
CHEST ONE VIEW: 06/01/19 HISTORY: Cough. FINDINGS: The heart size is normal. The aorta is tortuous. The lungs are well expanded without lobar consolidat ion, pneumothoraces, or pleural effusions. IMPRESSION: No radiographic evidence of acute cardiopulmonary process. POS: [facility]
== END 2019-06-01 15:37 | disposition home or self-care (01) ==
LOC: RAD-FRANK 15:36
PROVIDERS: ATTEND Internal Medicine
DX: R05 Cough (principal)
CPT/HCPCS: 71045; 71046

== ENCOUNTER 2019-11-14 13:11 | Outpatient (CLI) | payer MEDICAID, OTHER ==
--- NOTE | 2019-11-14 13:46 | BD ---
EXAM: DEXA bone density examination HISTORY: 54-year-old male for screening with osteopenia COMPARISON: None FINDINGS: Right distal third forearm--bone mineral density0.833; T score 0.3 Total distal right forearm--bone mineral density 0.700; T score 0.2 Left distal third forearm--bone mineral density0.877; T score 1.1 Total distal left forearm--bone mineral density 0.713; T score 0.5 IMPRESSION: Normal bone density.
--- NOTE | 2019-11-14 13:55 | RAD ---
EXAM: 3 views of the left shoulder HISTORY: Shoulder pain COMPARISON: None FINDINGS: There is no evidence of acute fracture or dislocation. Moderate glenohumeral degenerative c hanges are present. No soft tissue swelling is seen. The visualized thorax is unremarkable. IMPRESSION: Moderate glenohumeral osteoarthritis without evidence of acute osseous abnormality.
--- NOTE | 2019-11-14 15:13 | RAD ---
EXAM: RIGHT KNEE TWO VIEWS: 11/14/19 HISTORY: Right knee pain. FINDINGS: AP and lateral views of the right knee are performed. There are extensive tricompartment osteoarthros is changes with marked medial compartment joint space loss and extensive hypertrophic osteophytosis s howing some worsening when compared to the prior study. No acute fracture or dislocation. IMPRESSION: Severe somewhat progressive tricompartment right knee osteoarthrosis. POS: OFF
== END 2019-11-14 13:12 | disposition home or self-care (01) ==
LOC: BICMAMMO 13:11
PROVIDERS: ATTEND Nurse Practitioner Family
DX: Z13.820 Encounter for screening for osteoporosis (principal); M25.561 Pain in right knee; M25.512 Pain in left shoulder; M17.11 Unilateral primary osteoarthritis, right knee; M19.012 Primary osteoarthritis, left shoulder
CPT/HCPCS: 77080

== ENCOUNTER 2020-01-09 10:54 | Outpatient (CLI) | payer OTHER | END 2020-01-09 10:55 | disposition home or self-care (01) | LOC: DTY/OP 10:54 | PROVIDERS: ATTEND Surgery | DX: E66.01 Morbid (severe) obesity due to excess calories (principal) | CPT/HCPCS: 97802 ==

== ENCOUNTER 2020-02-22 07:01 | Outpatient (CLI) | payer OTHER ==
[2020-02-22 10:57] LABS: #Basophils 0.1 10x3/uL (0.0-0.2); #Eosinphils 0.5 10x3/uL (0.0-0.5); #Monocytes 0.7 10x3/uL (0.0-1.1); #Neutrophils 5.9 10x3/uL (1.5-8.4); %Basophils 0.6 % (0.0-2.0); %Eosinophils 5.4 % (0.0-6.0); %Lymphocytes 26.8 % (18.0-47.0); %Monocytes 7.2 % (0.0-10.0); %Neutrophils 59.7 % (40.0-75.0); Hemoglobin 13.1 g/dL (14.0-18.0); Mean Corpuscular HGB CONC 33.8 G/DL (32.0-36.0); Mean Corpuscular Volume 88.8 fl (80.0-100.0); Mean Platelet Volume 10.9 fl (7.4-10.4); Platelet Count 192 10x3/uL (130-400); RBC Distribution Width 13.2 % (11.5-14.5); Red Blood Cell (RBC) Count 4.37 10x6/uL (4.40-5.80); White Blood Cell (WBC) Count 9.9 10x3/uL (4.5-11.0)
[2020-02-22 11:11] LABS: INR-International Normal Ratio 1.1; Prothrombin Time 11.2 sec (9.5-12.1)
[2020-02-22 11:34] LABS: Anion Gap 15 mmol/L (10-20); BUN (Urea Nitrogen) 12 mg/dL (8.4-25.7); Calc. Creatinine Clearance 0 mL/min (70-130); Calcium 8.4 mg/dL (7.8-10.44); Carbon Dioxide 23 mmol/L (22-29); Chloride 104 mmol/L (98-107); Glucose 239 mg/dL (70-105); Potassium 3.8 mmol/L (3.5-5.1); Sodium 138 mmol/L (136-145)
[2020-02-22 22:37] LABS: SARS-CoV-2 MS2 Positive; SARS-CoV-2 N Gene Negative; SARS-CoV-2 S Gene Negative; SARS-CoV-2 by NAA Not Detected (NotDetected); SARS-CoV-2 orf1ab Negative
== END 2020-02-22 07:02 | disposition home or self-care (01) ==
LOC: LABBT 07:01
PROVIDERS: ATTEND Orthopaedic Surgery
DX: Z01.818 Encounter for other preprocedural examination (principal); M17.11 Unilateral primary osteoarthritis, right knee; Z20.828 Contact with and (suspected) exposure to other viral communicable diseases
CPT/HCPCS: 80048; 85025; 85610; 87081; 87635; U0003

== ENCOUNTER 2020-02-22 16:30 | Inpatient (IN) | payer OTHER ==
[2020-02-26 08:22] VITALS: BMI 44.3
[2020-02-27] MEDS ORDERED: Fentanyl 100 MCG/2 ML VIAL ONE ×4 (05:45→09:50)
[2020-02-27] MEDS ORDERED: Midazolam HCl 2 mg/2 ml Vial ONE (06:25)
[2020-02-27] MEDS ORDERED: Lidocaine 1% w/Epinephrine 1:100K 20 ML VIAL ONE (06:31)
[2020-02-27] MEDS ORDERED: Bupivacaine 0.25% HCL 30 ML VIAL ONE (06:31)
[2020-02-27] MEDS ORDERED: Sodium Chloride 0.9% 100 ML ONE (06:37)
[2020-02-27] MEDS ORDERED: Clindamycin/D5W 600 mg/50 ml Premix Bag ONE (06:37)
[2020-02-27] MEDS ORDERED: Tranexamic Acid 1,000 MG/10 ML VIAL ONE (06:37)
[2020-02-27] MEDS ORDERED: Lidocaine 2% Jelly 5 ML TUBE ONE (07:16)
[2020-02-27] MEDS ORDERED: Fentanyl 100 MCG/2 ML VIAL IV PRN (07:35)
[2020-02-27] MEDS ORDERED: traMADol HCl 50 MG TAB PO PRN (07:45)
[2020-02-27] MEDS ORDERED: Ropivacaine HCl/PF 250 ML in Premix Bag 1 BAG NERVE BLCK SCH (07:45)
[2020-02-27] MEDS ORDERED: HYDROcodone/Acetaminophen 10/325 mg Tablet PO PRN ×4 (07:45→12:16)
[2020-02-27] MEDS ORDERED: Zolpidem Tartrate 5 MG TAB PO PRN ×2 (07:45→12:16)
[2020-02-27] MEDS ORDERED: Ondansetron PF 4 MG/2 ML Vial IVP PRN ×2 (07:45→12:16)
[2020-02-27] MEDS ORDERED: Promethazine HCl 25 MG/ML VIAL IM PRN ×3 (07:45→12:16)
[2020-02-27] MEDS ORDERED: Promethazine HCl 25 MG/ML VIAL SLOW IVP PRN (08:45)
[2020-02-27] MEDS ORDERED: Ketorolac Tromethamine 30 MG/ML VIAL IVP PRN (08:45)
[2020-02-27] MEDS ORDERED: Ondansetron HCl/PF 4 MG/2 ML Vial IVP PRN (08:45)
[2020-02-27] MEDS ORDERED: Rocuronium Bromide 10 MG/ML (10ML VIAL) ONE (10:04)
[2020-02-27] MEDS ORDERED: Bupivacaine HCl 0.5%/Epinephrine 1:200,000/PF 30 ml Vial ONE (10:04)
[2020-02-27] MEDS ORDERED: Glycopyrrolate 0.2 MG/ML 5 ML SYRINGE ONE (10:04)
[2020-02-27] MEDS ORDERED: Vecuronium 10 MG VIAL ONE (10:04)
[2020-02-27] MEDS ORDERED: Ropivacaine 0.2% HCl/PF (40 MG/20 ML VIAL) ONE (10:04)
[2020-02-27] MEDS ORDERED: Ondansetron PF 4 MG/2 ML Vial ONE (10:04)
[2020-02-27] MEDS ORDERED: PROPOFOL 200 MG/20 ML VIAL ONE (10:04)
[2020-02-27] MEDS ORDERED: ePHEDrine 50 MG/ML VIAL ONE (10:04)
[2020-02-27] MEDS ORDERED: Lidocaine 1% PF 5 ML VIAL ONE (10:04)
[2020-02-27] MEDS ORDERED: Dexamethasone 20 MG/5 ML VIAL ONE (10:04)
[2020-02-27] MEDS ORDERED: Ketorolac Tromethamine 30 MG/ML VIAL ONE (10:39)
--- NOTE | 2020-02-27 11:02 | OP ---
DATE OF PROCEDURE: 02/27/2020 PREOPERATIVE DIAGNOSIS: Right knee osteoarthritis. POSTOPERATIVE DIAGNOSIS: Right knee osteoarthritis. PROCEDURE PERFORMED: Right total knee arthroplasty. ENAMEL FINISHER: Fabiola Trimble PA-C ANESTHESIOLOGIST: Flako Lr MD ANESTHESIA: The patient received an LMA with adductor canal catheter single-shot sciatic block. ESTIMATED BLOOD LOSS: 100 mL. TOURNIQUET TIME: 80 minutes at 300 mmHg. ANTIBIOTICS: Clindamycin 600, vancomycin 2 g, and the patient received TXA 1. IMPLANTS: Jase Triathlon size 7 CR femur, size 7 tibial base plate, 7 CS x 9 mm CS X3 poly, A35 patella. COMPLICATIONS: Medial skin tear from the saw superficial. HISTORY OF PRESENT ILLNESS: Mr. Rodriges is a 55-year-old male, status post left total knee arthroplasty, failed conservative management of the right knee. I discussed with him the risks and benefits of the procedure to include pain, scar, bleeding, infection, damage to vital structures, decreased range of motion, continued pain despite surgical intervention, need for further surgeries, thorough procedure in vital structures, and loss of life or limb. The patient understood the risks and benefits of the procedure and elected to proceed. DESCRIPTION OF PROCEDURE: Time-out was performed designating the patient's right lower extremity as the operative site based on site, consents, and markings. After time-out, the patient's right lower extremity was prepped and draped in sterile fashion. Tourniquet was brought up and left for a total of 80 minutes. In anterior midline approach, medial patellar arthrotomy was performed. We did a fat pad excision and medial soft tissue release to expose the medial tibia. We everted the patella, mapped out the distal femur cut at 8 and 8, 5 degrees slope, and 0 degrees varus and valgus. After completion of this, we had also placed our lateral Hohmann to protect collaterals and our medial collaterals. We then placed the 3-degree external rotation guide in place. We pinned into position, measured just 7, which was somewhat operative site as well as medial and lateral width. We pinned the box and cut with a size 7 for size 7. We did anterior, posterior, and chamfer osteotomies, removed the block. We ensured that we decompressed completely. We then placed our pickle fork in position, released the ACL and PCL, exposed the proximal tibia, cut off the tibial eminence, took down some of the osteophyte anteriorly as well as posterior and medially with a rongeur. We then mapped out, cut 0 mm medially and 8 mm laterally. We removed our osteotomy. We then placed our lamina furniture arranger, did our medial and lateral decompressions, decompressed the PCL, removed the ACL, removed all the menisci from medial and lateral compartments and posteriorly making sure the knee was decompressed. We did our medial soft tissue release. After this, we placed a size 7 tray into position. We had it aligned to line medially. We allowed it to translate to a good position within the bone for alignment and somewhat . We pinned our other guide after placing the 9 mm insert. We had good full extension, good stability in 30 degrees as well as varus and valgus stress. No significant posterior drawer. The patient had good complete arc of motion and good alignment of the components. We everted the patella, cut it down from about 26 at its thickest down to 13 mm. We drilled for a 35 patella, which we tracked well. We cut our lateral holes for femoral lugs. We cut our keel for tibia, removed all the implants, and washed. We cemented our tibia, placed a 9 CS poly, cemented our femur, removed excess cement from both, cemented our A35 patella, and removed excess cement from both. We then washed and closed the arthrotomy with #2 Vicryl, #2 Stratafix, 0 Stratafix, 2-0 Stratafix, and glue for the arthrotomy and skin. The patient will be admitted to [facility] protocol. He may need rehab postop. Job ID: [id number]
[2020-02-27] MEDS ORDERED: diphenhydrAMINE 25 MG CAP PO PRN (12:16)
[2020-02-27] MEDS ORDERED: Acetaminophen 325 MG TAB PO PRN (12:16)
[2020-02-27] MEDS ORDERED: Fentanyl 100 MCG/2 ML VIAL SLOW IVP PRN ×2 (12:16)
[2020-02-27] MEDS ORDERED: PROVENTIL INHALER 6.7 G (200 INHALATIONS) INH SCH (14:00)
[2020-02-27] MEDS: Clindamycin/D5W 900 MG in Premix Bag 1 BAG IVPB SCH ×2 (14:47→19:48)
[2020-02-27] MEDS: Sodium Chloride 0.9% 1,000 ML IV SCH ×2 (14:47→23:23)
[2020-02-27] MEDS ORDERED: Dextrose 5% in Water 1,000 ML IV PRN (16:45)
[2020-02-27] MEDS ORDERED: Dextrose 50% Abboject 50 ML SYRINGE IVP PRN (16:45)
[2020-02-27] MEDS: Ketorolac Tromethamine 30 MG/ML VIAL IVP SCH ×3 (16:49→23:11)
[2020-02-27] MEDS: metFORMIN 500 MG TAB PO SCH (17:24)
[2020-02-27] MEDS: Insulin Regular 300 UNITS/3 ML VIAL SC PRN ×2 (17:29→20:57)
[2020-02-27] MEDS ORDERED: Aspirin 81 mg Enteric Coated Tablet PO SCH (21:00)
--- NOTE | 2020-02-27 22:05 | RAD ---
Exam:2 views right knee HISTORY: Status post arthroplasty COMPARISON: None FINDINGS: Findings compatible with a right knee arthroplasty. There is associated postoperative gonzalez es in the soft tissues. Near anatomic alignment. IMPRESSION: On is compatible with right knee arthroplasty.
[2020-02-28 05:15] LABS: Hemoglobin 10.5 g/dL (14.0-18.0); Mean Corpuscular HGB CONC 34.8 g/dL (32.0-36.0); Mean Corpuscular Hemoglobin 31.4 pg (27.0-31.0); Mean Corpuscular Volume 90.2 fL (78.0-98.0); Mean Platelet Volume 8.7 fL (7.4-10.4); Platelet Count 149 thou/uL (130-400); RBC Distribution Width 12.7 % (11.5-14.5); Red Blood Cell (RBC) Count 3.33 mill/uL (4.70-6.10); White Blood Cell (WBC) Count 11.7 thou/uL (4.8-10.8)
[2020-02-28] MEDS: glyBURIDE 5 MG TAB PO SCH (05:57)
[2020-02-28] MEDS: Ketorolac Tromethamine 30 MG/ML VIAL IVP SCH ×3 (05:57→17:04)
[2020-02-28] MEDS: Senokot S 8.6-50 MG TAB PO SCH ×2 (08:39→20:36)
[2020-02-28] MEDS: Hydrochlorothiazide 25 MG TAB PO SCH (08:39)
[2020-02-28] MEDS: Ferrous Gluconate 324 MG TAB PO SCH ×2 (08:39→20:36)
[2020-02-28] MEDS: Aspirin Chewable 81 MG TAB PO SCH (08:39)
[2020-02-28] MEDS: metFORMIN 500 MG TAB PO SCH ×2 (08:40→17:04)
[2020-02-28] MEDS: Lisinopril 10 MG TAB PO SCH (08:41)
[2020-02-28] MEDS: Atorvastatin Calcium 20 MG TAB PO SCH (08:42)
[2020-02-28] MEDS: Multivitamin W/ Minerals 1 TAB PO SCH (08:42)
[2020-02-28] MEDS: Terbinafine 250 MG TAB PO SCH (08:42)
[2020-02-28] MEDS: Multivit, Therapeutic 1 TAB PO SCH (08:51)
[2020-02-28] MEDS: Sodium Chloride 0.9% 1,000 ML IV SCH ×3 (08:51→22:48)
[2020-02-28] MEDS ORDERED: Gabapentin 300 MG CAP PO SCH (09:00)
[2020-02-28] MEDS: Losartan 25 MG TAB PO SCH (09:28)
[2020-02-28] MEDS: Insulin Regular 300 UNITS/3 ML VIAL SC PRN ×2 (12:41→17:05)
[2020-02-29] MEDS: Ketorolac Tromethamine 30 MG/ML VIAL IVP SCH ×2 (02:27→04:20)
[2020-02-29] MEDS: traMADol HCl 50 MG TAB PO PRN ×2 (04:18→11:49)
[2020-02-29 05:24] LABS: Hemoglobin 10.4 g/dL (14.0-18.0); Mean Corpuscular HGB CONC 33.9 g/dL (32.0-36.0); Mean Corpuscular Hemoglobin 30.9 pg (27.0-31.0); Mean Corpuscular Volume 91.2 fL (78.0-98.0); Mean Platelet Volume 8.7 fL (7.4-10.4); Platelet Count 144 thou/uL (130-400); RBC Distribution Width 12.6 % (11.5-14.5); Red Blood Cell (RBC) Count 3.38 mill/uL (4.70-6.10); White Blood Cell (WBC) Count 13.2 thou/uL (4.8-10.8)
[2020-02-29] MEDS: glyBURIDE 5 MG TAB PO SCH (07:46)
[2020-02-29] MEDS: Ferrous Gluconate 324 MG TAB PO SCH (08:11)
[2020-02-29] MEDS: Multivitamin W/ Minerals 1 TAB PO SCH (08:11)
[2020-02-29] MEDS: Hydrochlorothiazide 25 MG TAB PO SCH (08:12)
[2020-02-29] MEDS: metFORMIN 500 MG TAB PO SCH (08:12)
[2020-02-29] MEDS: Losartan 25 MG TAB PO SCH (08:12)
[2020-02-29] MEDS: Atorvastatin Calcium 20 MG TAB PO SCH (08:12)
[2020-02-29] MEDS: Aspirin Chewable 81 MG TAB PO SCH (08:12)
[2020-02-29] MEDS: Lisinopril 10 MG TAB PO SCH (08:12)
[2020-02-29] MEDS: Terbinafine 250 MG TAB PO SCH (08:13)
[2020-02-29] MEDS: Multivit, Therapeutic 1 TAB PO SCH (10:21)
[2020-02-29] MEDS: Senokot S 8.6-50 MG TAB PO SCH (10:21)
[2020-02-29 12:22] VITALS: BP 163/94; TEMP 98.4
== END 2020-02-29 15:45 | disposition home or self-care (01) | DRG 470 ==
LOC: SURG A 02-27 05:37 → EDSTATUS 02-27 16:30
PROVIDERS: ADMIT Orthopaedic Surgery; ATTEND Orthopaedic Surgery
PROC: 0SRC0J9 Replacement of Right Knee Joint with Synthetic Substitute, Cemented, Open Approach (ICD-10-PCS; principal; 2020-02-27)
DX: M17.11 Unilateral primary osteoarthritis, right knee (principal); I10 Essential (primary) hypertension; K21.9 Gastro-esophageal reflux disease without esophagitis; E11.9 Type 2 diabetes mellitus without complications; Z96.652 Presence of left artificial knee joint; Z98.84 Bariatric surgery status; Z86.73 Personal history of transient ischemic attack (TIA), and cerebral infarction without residual deficits; Z79.899 Other long term (current) drug therapy; Z79.84 Long term (current) use of oral hypoglycemic drugs; Z79.82 Long term (current) use of aspirin; Z88.0 Allergy status to penicillin
CPT/HCPCS: 36415; 36416; 85027; 93005; 93010; C1713; C1776; J1100; J1815; J1885; J2250; J2405; J2704; J2795; J3010; J3370; J3490; J7030; S0020

== ENCOUNTER 2020-06-25 13:32 | Outpatient (CLI) | payer OTHER ==
[2020-06-25 15:46] LABS: Hemoglobin 12.6 g/dL (13.5-17.5); Mean Corpuscular HGB CONC 32.4 g/dL (32.0-36.0); Mean Corpuscular Volume 83.3 fl (81.2-95.1); Platelet Count 306 10x3/uL (150-450); RBC Distribution Width 14.5 % (11.5-14.5); Red Blood Cell (RBC) Count 4.67 10x6/uL (4.32-5.72); White Blood Cell (WBC) Count 12.9 10x3/uL (3.5-10.5)
[2020-06-25 15:57] LABS: Prothrombin Time 11.3 sec (9.5-12.1)
== END 2020-06-25 13:33 | disposition home or self-care (01) ==
LOC: LABBT 13:32
PROVIDERS: ATTEND Orthopaedic Surgery
DX: Z01.812 Encounter for preprocedural laboratory examination (principal); T84.53XA Infection and inflammatory reaction due to internal right knee prosthesis, initial encounter
CPT/HCPCS: 80048; 85027; 85610; 86850; 86900; 86901; 87081; 87635; U0003; U0005

== ENCOUNTER 2020-06-28 10:53 | Inpatient (IN) | payer OTHER ==
[2020-06-25 16:03] LABS: Anion Gap 15 mmol/L (10-20); BUN (Urea Nitrogen) 11 mg/dL (8.4-25.7); Calc. Creatinine Clearance 0 mL/min (70-130); Calcium 8.6 mg/dL (7.8-10.44); Carbon Dioxide 26 mmol/L (22-29); Chloride 96 mmol/L (98-107); Glucose 339 mg/dL (70-105); Potassium 3.7 mmol/L (3.5-5.1); Sodium 133 mmol/L (136-145)
[2020-06-26 01:55] LABS: SARS-CoV-2 PCR by NAA Not Detected (NotDetected)
[2020-06-27 09:21] VITALS: BMI 41.7
[~2020-06-28 10:53] MED LIST: Heparin 1,000 UNITS/ML VIAL ONE
[2020-06-28] MEDS ORDERED: Sodium Chloride 0.9% 100 ML ONE (11:51)
[2020-06-28] MEDS ORDERED: Clindamycin/D5W 600 mg/50 ml Premix Bag ONE (11:51)
[2020-06-28] MEDS ORDERED: Tranexamic Acid 1,000 MG/10 ML VIAL ONE ×2 (11:51→15:03)
[2020-06-28] MEDS ORDERED: VANCOMYCIN 2 GRAM/400 ML BAG 2 GM in Premix Bag 1 BAG IVPB SCH (12:00)
[2020-06-28] MEDS ORDERED: Fentanyl 100 MCG/2 ML VIAL ONE ×6 (12:13→16:32)
[2020-06-28] MEDS ORDERED: Midazolam HCl 2 mg/2 ml Vial ONE ×2 (12:13→12:16)
[2020-06-28] MEDS ORDERED: Levofloxacin 500 mg/D5W 100 ml Premix Bag ONE (12:14)
[2020-06-28] MEDS ORDERED: Ketorolac Tromethamine 30 MG/ML VIAL ONE (12:58)
[2020-06-28] MEDS ORDERED: Ondansetron PF 4 MG/2 ML Vial ONE (12:58)
[2020-06-28] MEDS ORDERED: Ropivacaine 2% HCl/PF (20 MG/10 ML VIAL) ONE (12:58)
[2020-06-28] MEDS ORDERED: Ropivacaine 0.5% HCl/PF (150 MG/30 ML VIAL) ONE (12:58)
[2020-06-28] MEDS ORDERED: Lidocaine 1% PF 5 ML VIAL ONE (12:58)
[2020-06-28] MEDS ORDERED: Glycopyrrolate 0.2 MG/ML 5 ML SYRINGE ONE (12:58)
[2020-06-28] MEDS ORDERED: PROPOFOL 200 MG/20 ML VIAL ONE (12:58)
[2020-06-28] MEDS ORDERED: Rocuronium Bromide 10 MG/ML (10ML VIAL) ONE (12:58)
[2020-06-28] MEDS ORDERED: Fentanyl 100 MCG/2 ML VIAL IV PRN (12:59)
[2020-06-28] MEDS ORDERED: traMADol HCl 50 MG TAB PO PRN ×2 (13:00)
[2020-06-28] MEDS ORDERED: HYDROcodone/Acetaminophen 10/325 mg Tablet PO PRN ×4 (13:00→16:53)
[2020-06-28] MEDS ORDERED: Ropivacaine HCl/PF 250 ML in Premix Bag 1 BAG NERVE BLCK SCH (13:00)
[2020-06-28] MEDS ORDERED: Ondansetron PF 4 MG/2 ML Vial IVP PRN ×2 (13:00→16:53)
[2020-06-28] MEDS ORDERED: Promethazine HCl 25 MG/ML VIAL IM PRN ×2 (13:00→16:53)
[2020-06-28] MEDS ORDERED: Zolpidem Tartrate 5 MG TAB PO PRN ×2 (13:00→16:53)
[2020-06-28] MEDS ORDERED: Tobramycin Sulfate 1.2 GM VIAL ONE (13:35)
[2020-06-28] MEDS: Sodium Chloride 0.9% 1,000 ML IV SCH (17:29)
[2020-06-28] MEDS: Clindamycin/D5W 900 MG in Premix Bag 1 BAG IVPB SCH (17:31)
[2020-06-28] MEDS: Ketorolac Tromethamine 30 MG/ML VIAL IVP SCH (17:33)
[2020-06-28] MEDS: Ferrous Gluconate 324 MG TAB PO SCH (21:28)
[2020-06-28] MEDS: Aspirin 81 mg Enteric Coated Tablet PO SCH (21:28)
[2020-06-28] MEDS: Senokot S 8.6-50 MG TAB PO SCH (21:28)
[2020-06-29] MEDS: Ketorolac Tromethamine 30 MG/ML VIAL IVP SCH ×4 (03:04→18:41)
[2020-06-29] MEDS: Clindamycin/D5W 900 MG in Premix Bag 1 BAG IVPB SCH ×4 (03:14→18:41)
[2020-06-29] MEDS: Sodium Chloride 0.9% 1,000 ML IV SCH ×2 (03:44→15:14)
[2020-06-29] MEDS: VANCOMYCIN 2 GRAM/400 ML BAG 2 GM in Premix Bag 1 BAG IVPB SCH ×4 (03:46→21:06)
[2020-06-29] MEDS: Acetaminophen 325 MG TAB PO PRN ×2 (03:53→03:55)
[2020-06-29 05:31] LABS: Hemoglobin 10.5 g/dL (14.0-18.0); Mean Corpuscular HGB CONC 33.3 g/dL (32.0-36.0); Mean Corpuscular Hemoglobin 28.1 pg (27.0-31.0); Mean Corpuscular Volume 84.5 fL (78.0-98.0); Mean Platelet Volume 8.2 fL (7.4-10.4); Platelet Count 251 thou/uL (130-400); RBC Distribution Width 14.2 % (11.5-14.5); Red Blood Cell (RBC) Count 3.72 mill/uL (4.70-6.10); White Blood Cell (WBC) Count 14.2 thou/uL (4.8-10.8)
[2020-06-29] MEDS: Multivitamin W/ Minerals 1 TAB PO SCH (07:46)
[2020-06-29] MEDS: Aspirin 81 mg Enteric Coated Tablet PO SCH ×2 (07:46→21:06)
[2020-06-29] MEDS: Ferrous Gluconate 324 MG TAB PO SCH ×2 (07:46→21:06)
[2020-06-29] MEDS: Senokot S 8.6-50 MG TAB PO SCH ×2 (07:47→21:06)
[2020-06-29] MEDS ORDERED: Gabapentin 100 MG CAP PO SCH (08:30)
[2020-06-29] MEDS ORDERED: Dextrose 50% Abboject 50 ML SYRINGE SLOW IVP PRN (13:06)
[2020-06-29] MEDS ORDERED: Dextrose 5% in Water 1,000 ML IV PRN (13:06)
[2020-06-29] MEDS: HumaLOG 300 UNITS/3 ML VIAL SC PRN ×2 (13:59→17:13)
[2020-06-29 14:07] LABS: ALT (SGPT) Less than 7 U/L (8-55); AST (SGOT) 10 U/L (5-34); Albumin 2.9 g/dL (3.5-5.0); Alkaline Phosphatase 84 U/L (40-110); Anion Gap 13 mmol/L (10-20); BUN (Urea Nitrogen) 18 mg/dL (8.4-25.7); Bilirubin, Total 0.5 mg/dL (0.2-1.2); Calc. Creatinine Clearance 169 mL/min (70-130); Calcium 7.9 mg/dL (7.8-10.44); Carbon Dioxide 22 mmol/L (22-29); Chloride 99 mmol/L (98-107); Globulin 3.1 g/dL (2.4-3.5); Glucose 339 mg/dL (70-105); Potassium 3.8 mmol/L (3.5-5.1); Sodium 130 mmol/L (136-145)
[2020-06-29] MEDS ORDERED: metFORMIN 500 MG TAB PO SCH (17:00)
[2020-06-30] MEDS: Ketorolac Tromethamine 30 MG/ML VIAL IVP SCH ×2 (00:34→04:58)
[2020-06-30] MEDS: Clindamycin/D5W 900 MG in Premix Bag 1 BAG IVPB SCH ×2 (00:34→04:58)
[2020-06-30] MEDS: Sodium Chloride 0.9% 1,000 ML IV SCH ×2 (03:16→13:04)
[2020-06-30] MEDS: HumaLOG 300 UNITS/3 ML VIAL SC PRN ×3 (05:01→17:10)
[2020-06-30 05:35] LABS: #Basophils 0.1 thou/uL (0.0-0.2); #Eosinphils 0.2 thou/uL (0.0-0.7); #Lymphocytes 2.8 thou/uL (1.20-3.40); #Neutrophils 7.6 thou/uL (1.40-6.50); %Basophils 0.5 % (0.0-1.0); %Eosinophils 1.7 % (0.0-10.0); %Lymphocytes 23.7 % (21.0-51.0); %Monocytes 8.4 % (0.0-10.0); %Neutrophils 65.7 % (42.0-75.0); Hemoglobin 9.9 g/dL (14.0-18.0); Mean Corpuscular HGB CONC 31.8 g/dL (32.0-36.0); Mean Corpuscular Volume 84.9 fL (78.0-98.0); Mean Platelet Volume 8.2 fL (7.4-10.4); Platelet Count 200 thou/uL (130-400); RBC Distribution Width 14.3 % (11.5-14.5); Red Blood Cell (RBC) Count 3.68 mill/uL (4.70-6.10); White Blood Cell (WBC) Count 11.6 thou/uL (4.8-10.8)
[2020-06-30] MEDS: VANCOMYCIN 2 GRAM/400 ML BAG 2 GM in Premix Bag 1 BAG IVPB SCH (05:44)
[2020-06-30 05:51] LABS: Vancomycin, Trough 26.2 ug/mL
[2020-06-30 05:55] LABS: Anion Gap 13 mmol/L (10-20); BUN (Urea Nitrogen) 18 mg/dL (8.4-25.7); Calc. Creatinine Clearance 185 mL/min (70-130); Calcium 7.7 mg/dL (7.8-10.44); Carbon Dioxide 21 mmol/L (22-29); Chloride 102 mmol/L (98-107); Glucose 190 mg/dL (70-105); Sodium 132 mmol/L (136-145)
[2020-06-30] MEDS ORDERED: glyBURIDE 5 MG TAB PO SCH (09:00)
[2020-06-30] MEDS ORDERED: metFORMIN 500 MG TAB PO SCH (09:00)
[2020-06-30] MEDS: Senokot S 8.6-50 MG TAB PO SCH ×2 (09:35→21:22)
[2020-06-30] MEDS: metFORMIN 500 MG TAB PO SCH ×2 (09:35→17:07)
[2020-06-30] MEDS: Hydrochlorothiazide 25 MG TAB PO SCH (09:36)
[2020-06-30] MEDS: Atorvastatin Calcium 20 MG TAB PO SCH (09:36)
[2020-06-30] MEDS: Ferrous Gluconate 324 MG TAB PO SCH ×2 (09:36→21:22)
[2020-06-30] MEDS: Multivitamin W/ Minerals 1 TAB PO SCH ×2 (09:36→09:41)
[2020-06-30] MEDS: Aspirin 81 mg Enteric Coated Tablet PO SCH ×2 (09:36→21:22)
[2020-06-30] MEDS: Stress 600 With Zinc 1 TAB PO SCH (09:36)
[2020-06-30] MEDS: Lisinopril 10 MG TAB PO SCH (09:36)
[2020-06-30] MEDS: glyBURIDE 5 MG TAB PO SCH ×2 (09:57→21:22)
[2020-06-30] MEDS ORDERED: Ketorolac Tromethamine 30 MG/ML VIAL IVP PRN (11:01)
[2020-06-30] MEDS: Vancomycin 1.5 GRAM/300 ML BAG 1.5 GM in Premix Bag 1 BAG IVPB SCH ×2 (15:32→21:22)
[2020-06-30] MEDS ORDERED: Ropivacaine HCl/PF 250 ML in Premix Bag 1 BAG NERVE BLCK SCH (18:00)
[2020-06-30] MEDS: Gabapentin 100 MG CAP PO PRN (22:59)
[2020-07-01] MEDS: Sodium Chloride 0.9% 1,000 ML IV SCH ×3 (03:55→14:41)
[2020-07-01] MEDS: Vancomycin 1.5 GRAM/300 ML BAG 1.5 GM in Premix Bag 1 BAG IVPB SCH ×3 (05:49→21:19)
[2020-07-01] MEDS: HumaLOG 300 UNITS/3 ML VIAL SC PRN ×3 (05:49→16:53)
[2020-07-01 06:28] LABS: Hemoglobin 10.4 g/dL (14.0-18.0); Mean Corpuscular HGB CONC 33.2 g/dL (32.0-36.0); Mean Corpuscular Hemoglobin 28.1 pg (27.0-31.0); Mean Corpuscular Volume 84.6 fL (78.0-98.0); Mean Platelet Volume 8.3 fL (7.4-10.4); Platelet Count 218 thou/uL (130-400); RBC Distribution Width 14.7 % (11.5-14.5); Red Blood Cell (RBC) Count 3.71 mill/uL (4.70-6.10); White Blood Cell (WBC) Count 10.9 thou/uL (4.8-10.8)
[2020-07-01] MEDS: Senokot S 8.6-50 MG TAB PO SCH ×2 (09:34→21:20)
[2020-07-01] MEDS: Aspirin 81 mg Enteric Coated Tablet PO SCH ×2 (09:35→21:20)
[2020-07-01] MEDS: metFORMIN 500 MG TAB PO SCH ×2 (09:35→16:49)
[2020-07-01] MEDS: Multivitamin W/ Minerals 1 TAB PO SCH ×2 (09:35→09:42)
[2020-07-01] MEDS: Hydrochlorothiazide 25 MG TAB PO SCH (09:35)
[2020-07-01] MEDS: Ferrous Gluconate 324 MG TAB PO SCH ×2 (09:36→21:36)
[2020-07-01] MEDS: Lisinopril 10 MG TAB PO SCH (09:36)
[2020-07-01] MEDS: Atorvastatin Calcium 20 MG TAB PO SCH (09:36)
[2020-07-01] MEDS: glyBURIDE 5 MG TAB PO SCH ×2 (09:36→21:21)
[2020-07-01] MEDS: Stress 600 With Zinc 1 TAB PO SCH (09:36)
[2020-07-01 14:04] LABS: Vancomycin, Trough 18.6 ug/mL
[2020-07-01] MEDS: Gabapentin 100 MG CAP PO PRN (23:24)
[2020-07-02] MEDS: Vancomycin 1.5 GRAM/300 ML BAG 1.5 GM in Premix Bag 1 BAG IVPB SCH ×3 (05:22→22:05)
[2020-07-02 06:02] LABS: Hemoglobin 10.7 g/dL (14.0-18.0); Mean Corpuscular HGB CONC 32.9 g/dL (32.0-36.0); Mean Corpuscular Hemoglobin 27.9 pg (27.0-31.0); Mean Corpuscular Volume 84.7 fL (78.0-98.0); Mean Platelet Volume 8.3 fL (7.4-10.4); Platelet Count 220 thou/uL (130-400); RBC Distribution Width 14.9 % (11.5-14.5); Red Blood Cell (RBC) Count 3.86 mill/uL (4.70-6.10); White Blood Cell (WBC) Count 11.9 thou/uL (4.8-10.8)
[2020-07-02] MEDS: Sodium Chloride 0.9% 1,000 ML IV SCH ×3 (07:46→21:56)
[2020-07-02] MEDS: Atorvastatin Calcium 20 MG TAB PO SCH (08:50)
[2020-07-02] MEDS: metFORMIN 500 MG TAB PO SCH ×2 (08:50→17:46)
[2020-07-02] MEDS: Hydrochlorothiazide 25 MG TAB PO SCH (08:50)
[2020-07-02] MEDS: Aspirin 81 mg Enteric Coated Tablet PO SCH ×2 (08:50→19:55)
[2020-07-02] MEDS: Stress 600 With Zinc 1 TAB PO SCH (08:50)
[2020-07-02] MEDS: Ferrous Gluconate 324 MG TAB PO SCH ×2 (08:50→19:55)
[2020-07-02] MEDS: Multivitamin W/ Minerals 1 TAB PO SCH ×2 (08:50→08:51)
[2020-07-02] MEDS: glyBURIDE 5 MG TAB PO SCH ×2 (08:50→19:56)
[2020-07-02] MEDS: Lisinopril 10 MG TAB PO SCH (08:51)
[2020-07-02] MEDS: Senokot S 8.6-50 MG TAB PO SCH ×2 (08:52→19:56)
[2020-07-02] MEDS: HumaLOG 300 UNITS/3 ML VIAL SC PRN ×2 (11:55→20:32)
[2020-07-02] MEDS ORDERED: Loratadine/Pseudoephedrine 10/240 mg Tablet PO PRN (16:59)
[2020-07-02] MEDS: Oxymetazoline HCl 0.05% (30 ML BOT) NS PRN (17:47)
[2020-07-02] MEDS: Gabapentin 100 MG CAP PO PRN (22:04)
[2020-07-03] MEDS: diphenhydrAMINE 25 MG CAP PO PRN (00:23)
[2020-07-03] MEDS: HumaLOG 300 UNITS/3 ML VIAL SC PRN ×2 (05:20→11:26)
[2020-07-03 05:52] LABS: Mean Corpuscular Volume 84.8 fL (78.0-98.0); Mean Platelet Volume 8.1 fL (7.4-10.4)
[2020-07-03 05:54] LABS: Vancomycin, Trough 27.7 ug/mL
[2020-07-03 06:10] LABS: Hemoglobin 10.9 g/dL (14.0-18.0); Mean Corpuscular HGB CONC 32.9 g/dL (32.0-36.0); Mean Corpuscular Hemoglobin 27.9 pg (27.0-31.0); Platelet Count 247 thou/uL (130-400); RBC Distribution Width 14.9 % (11.5-14.5); Red Blood Cell (RBC) Count 3.89 mill/uL (4.70-6.10); White Blood Cell (WBC) Count 12.7 thou/uL (4.8-10.8)
[2020-07-03] MEDS: Vancomycin 1.5 GRAM/300 ML BAG 1.5 GM in Premix Bag 1 BAG IVPB SCH (06:20)
[2020-07-03] MEDS: Sodium Chloride 0.9% 1,000 ML IV SCH ×2 (06:35→16:22)
[2020-07-03 07:54] LABS: ALT (SGPT) 8 U/L (8-55); AST (SGOT) 19 U/L (5-34); Albumin 3.3 g/dL (3.5-5.0); Alkaline Phosphatase 89 U/L (40-110); Anion Gap 16 mmol/L (10-20); BUN (Urea Nitrogen) 12 mg/dL (8.4-25.7); Bilirubin, Total 0.9 mg/dL (0.2-1.2); Calc. Creatinine Clearance 205 mL/min (70-130); Calcium 8.5 mg/dL (7.8-10.44); Carbon Dioxide 21 mmol/L (22-29); Chloride 101 mmol/L (98-107); Globulin 3.3 g/dL (2.4-3.5); Glucose 148 mg/dL (70-105); Potassium 4.4 mmol/L (3.5-5.1); Protein, Total 6.6 g/dL (6.0-8.3); Sodium 134 mmol/L (136-145)
[2020-07-03] MEDS: metFORMIN 500 MG TAB PO SCH ×2 (08:47→17:16)
[2020-07-03] MEDS: Senokot S 8.6-50 MG TAB PO SCH ×2 (08:48→19:58)
[2020-07-03] MEDS: Ferrous Gluconate 324 MG TAB PO SCH ×2 (08:48→19:58)
[2020-07-03] MEDS: Hydrochlorothiazide 25 MG TAB PO SCH (08:48)
[2020-07-03] MEDS: Atorvastatin Calcium 20 MG TAB PO SCH (08:48)
[2020-07-03] MEDS: Aspirin 81 mg Enteric Coated Tablet PO SCH ×2 (08:48→19:58)
[2020-07-03] MEDS: Multivitamin W/ Minerals 1 TAB PO SCH ×2 (08:48)
[2020-07-03] MEDS: glyBURIDE 5 MG TAB PO SCH ×2 (08:49→19:58)
[2020-07-03] MEDS: Stress 600 With Zinc 1 TAB PO SCH (08:49)
[2020-07-03] MEDS: Lisinopril 10 MG TAB PO SCH (08:49)
[2020-07-03 15:26] LABS: Vancomycin, Trough 11.5 ug/mL
[2020-07-03] MEDS: VANCOMYCIN 1.75 GM/350 ML BAG 1.75 GM in Premix Bag 1 BAG IVPB SCH (17:16)
[2020-07-03] MEDS: Oxymetazoline HCl 0.05% (30 ML BOT) NS PRN (19:57)
[2020-07-03] MEDS: Gabapentin 100 MG CAP PO PRN (22:22)
[2020-07-04] MEDS: diphenhydrAMINE 25 MG CAP PO PRN ×2 (01:13→21:30)
[2020-07-04] MEDS: Sodium Chloride 0.9% 1,000 ML IV SCH (04:03)
[2020-07-04 05:38] LABS: Hemoglobin 10.9 g/dL (14.0-18.0); Mean Corpuscular HGB CONC 33.1 g/dL (32.0-36.0); Mean Corpuscular Hemoglobin 27.7 pg (27.0-31.0); Mean Corpuscular Volume 83.9 fL (78.0-98.0); Mean Platelet Volume 7.8 fL (7.4-10.4); Platelet Count 245 thou/uL (130-400); RBC Distribution Width 14.7 % (11.5-14.5); Red Blood Cell (RBC) Count 3.93 mill/uL (4.70-6.10)
[2020-07-04 05:57] LABS: Vancomycin, Trough 13.2 ug/mL
[2020-07-04] MEDS: VANCOMYCIN 1.75 GM/350 ML BAG 1.75 GM in Premix Bag 1 BAG IVPB SCH ×2 (06:18→17:34)
[2020-07-04] MEDS: Glimepiride 2 MG TAB PO SCH (06:20)
[2020-07-04] MEDS: Senokot S 8.6-50 MG TAB PO SCH ×2 (08:37→22:03)
[2020-07-04] MEDS: Aspirin 81 mg Enteric Coated Tablet PO SCH ×2 (08:37→21:29)
[2020-07-04] MEDS: glyBURIDE 5 MG TAB PO SCH ×2 (08:37→21:30)
[2020-07-04] MEDS: Hydrochlorothiazide 25 MG TAB PO SCH (08:38)
[2020-07-04] MEDS: Atorvastatin Calcium 20 MG TAB PO SCH (08:38)
[2020-07-04] MEDS: Stress 600 With Zinc 1 TAB PO SCH (08:38)
[2020-07-04] MEDS: Lisinopril 10 MG TAB PO SCH (08:38)
[2020-07-04] MEDS: Multivitamin W/ Minerals 1 TAB PO SCH ×2 (08:39)
[2020-07-04] MEDS: Ferrous Gluconate 324 MG TAB PO SCH ×2 (08:39→21:30)
[2020-07-04] MEDS: metFORMIN 500 MG TAB PO SCH ×2 (08:39→17:34)
[2020-07-04] MEDS: Rifampin 300 MG CAP PO SCH ×2 (10:17→21:30)
[2020-07-04] MEDS: HumaLOG 300 UNITS/3 ML VIAL SC PRN ×2 (16:30→21:30)
[2020-07-04] MEDS ORDERED: Guaifenesin DM 100-10/5 ML UDCUP PO PRN (19:54)
[2020-07-04] MEDS: Gabapentin 100 MG CAP PO PRN (21:29)
[2020-07-05 05:19] LABS: Hemoglobin 12.4 g/dL (14.0-18.0); Mean Corpuscular HGB CONC 33.4 g/dL (32.0-36.0); Mean Corpuscular Hemoglobin 28.2 pg (27.0-31.0); Mean Corpuscular Volume 84.5 fL (78.0-98.0); Mean Platelet Volume 8.1 fL (7.4-10.4); Platelet Count 259 thou/uL (130-400); Red Blood Cell (RBC) Count 4.37 mill/uL (4.70-6.10); White Blood Cell (WBC) Count 12.6 thou/uL (4.8-10.8)
[2020-07-05 05:45] LABS: Vancomycin, Trough 11.4 ug/mL
[2020-07-05] MEDS ORDERED: VANCOMYCIN 2 GRAM/400 ML BAG 2 GM in Premix Bag 1 BAG IVPB SCH (06:00)
[2020-07-05] MEDS ORDERED: VANCOMYCIN 1.75 GM/350 ML BAG 1.75 GM in Premix Bag 1 BAG IVPB SCH (06:00)
[2020-07-05] MEDS: VANCOMYCIN 2 GRAM/400 ML BAG 2 GM in Premix Bag 1 BAG IVPB SCH ×2 (06:27→17:17)
[2020-07-05] MEDS: Glimepiride 2 MG TAB PO SCH (06:27)
[2020-07-05] MEDS: HumaLOG 300 UNITS/3 ML VIAL SC PRN (06:27)
[2020-07-05] MEDS: Ferrous Gluconate 324 MG TAB PO SCH ×2 (08:39→21:37)
[2020-07-05] MEDS: Multivitamin W/ Minerals 1 TAB PO SCH ×2 (08:39→08:41)
[2020-07-05] MEDS: Stress 600 With Zinc 1 TAB PO SCH (08:40)
[2020-07-05] MEDS: glyBURIDE 5 MG TAB PO SCH ×2 (08:40→21:37)
[2020-07-05] MEDS: Senokot S 8.6-50 MG TAB PO SCH ×2 (08:40→23:10)
[2020-07-05] MEDS: metFORMIN 500 MG TAB PO SCH ×2 (08:40→17:16)
[2020-07-05] MEDS: Atorvastatin Calcium 20 MG TAB PO SCH (08:40)
[2020-07-05] MEDS: Hydrochlorothiazide 25 MG TAB PO SCH (08:40)
[2020-07-05] MEDS: Aspirin 81 mg Enteric Coated Tablet PO SCH ×2 (08:40→21:37)
[2020-07-05] MEDS: Lisinopril 10 MG TAB PO SCH (08:40)
[2020-07-05] MEDS: Rifampin 300 MG CAP PO SCH ×2 (11:18→21:37)
[2020-07-05] MEDS: Benzonatate 100 MG CAP PO PRN (17:15)
[2020-07-05] MEDS: diphenhydrAMINE 25 MG CAP PO PRN (21:37)
[2020-07-05] MEDS: Gabapentin 100 MG CAP PO PRN (21:37)
[2020-07-06] MEDS: VANCOMYCIN 2 GRAM/400 ML BAG 2 GM in Premix Bag 1 BAG IVPB SCH ×2 (06:15→18:39)
[2020-07-06] MEDS: Glimepiride 2 MG TAB PO SCH (06:16)
[2020-07-06 07:00] LABS: Hemoglobin 11.7 g/dL (14.0-18.0); Mean Corpuscular HGB CONC 31.9 g/dL (32.0-36.0); Mean Corpuscular Volume 84.5 fL (78.0-98.0); Platelet Count 272 thou/uL (130-400); RBC Distribution Width 14.9 % (11.5-14.5); Red Blood Cell (RBC) Count 4.33 mill/uL (4.70-6.10); White Blood Cell (WBC) Count 12.9 thou/uL (4.8-10.8)
[2020-07-06] MEDS: Ferrous Gluconate 324 MG TAB PO SCH ×2 (08:31→20:21)
[2020-07-06] MEDS: Hydrochlorothiazide 25 MG TAB PO SCH (08:31)
[2020-07-06] MEDS: Senokot S 8.6-50 MG TAB PO SCH ×2 (08:31→20:21)
[2020-07-06] MEDS: Aspirin 81 mg Enteric Coated Tablet PO SCH ×2 (08:31→20:21)
[2020-07-06] MEDS: metFORMIN 500 MG TAB PO SCH ×2 (08:31→17:25)
[2020-07-06] MEDS: Multivitamin W/ Minerals 1 TAB PO SCH ×2 (08:31→08:34)
[2020-07-06] MEDS: glyBURIDE 5 MG TAB PO SCH ×2 (08:32→20:21)
[2020-07-06] MEDS: Atorvastatin Calcium 20 MG TAB PO SCH (08:32)
[2020-07-06] MEDS: Lisinopril 10 MG TAB PO SCH (08:32)
[2020-07-06] MEDS: Rifampin 300 MG CAP PO SCH ×2 (09:54→20:21)
[2020-07-06] MEDS: Stress 600 With Zinc 1 TAB PO SCH (09:54)
[2020-07-06] MEDS: HumaLOG 300 UNITS/3 ML VIAL SC PRN (17:25)
[2020-07-06 17:56] LABS: Vancomycin, Trough 15.2 ug/mL
[2020-07-06] MEDS: Gabapentin 100 MG CAP PO PRN (21:40)
[2020-07-06] MEDS: diphenhydrAMINE 25 MG CAP PO PRN (21:40)
[2020-07-06] MEDS: Benzonatate 100 MG CAP PO PRN (21:44)
[2020-07-07] MEDS: diphenhydrAMINE 25 MG CAP PO PRN ×2 (02:28→20:48)
[2020-07-07] MEDS: HumaLOG 300 UNITS/3 ML VIAL SC PRN ×2 (06:07→20:48)
[2020-07-07] MEDS: VANCOMYCIN 2 GRAM/400 ML BAG 2 GM in Premix Bag 1 BAG IVPB SCH ×2 (06:07→17:20)
[2020-07-07] MEDS: Glimepiride 2 MG TAB PO SCH ×2 (06:39→10:23)
[2020-07-07] MEDS: Stress 600 With Zinc 1 TAB PO SCH (08:42)
[2020-07-07] MEDS: Hydrochlorothiazide 25 MG TAB PO SCH (08:42)
[2020-07-07] MEDS: Senokot S 8.6-50 MG TAB PO SCH ×2 (08:42→20:44)
[2020-07-07] MEDS: metFORMIN 500 MG TAB PO SCH ×2 (08:42→17:20)
[2020-07-07] MEDS: Aspirin 81 mg Enteric Coated Tablet PO SCH ×2 (08:42→20:44)
[2020-07-07] MEDS: Lisinopril 10 MG TAB PO SCH (08:43)
[2020-07-07] MEDS: Ferrous Gluconate 324 MG TAB PO SCH ×2 (08:43→20:43)
[2020-07-07] MEDS: Multivitamin W/ Minerals 1 TAB PO SCH ×2 (08:43→08:46)
[2020-07-07] MEDS: Atorvastatin Calcium 20 MG TAB PO SCH (08:43)
[2020-07-07] MEDS: Rifampin 300 MG CAP PO SCH ×2 (10:23→20:44)
[2020-07-07] MEDS: glyBURIDE 5 MG TAB PO SCH ×2 (10:25→20:44)
[2020-07-07] MEDS: Gabapentin 100 MG CAP PO PRN (20:48)
[2020-07-08] MEDS: VANCOMYCIN 2 GRAM/400 ML BAG 2 GM in Premix Bag 1 BAG IVPB SCH (06:24)
[2020-07-08 06:44] LABS: #Basophils 0.1 thou/uL (0.0-0.2); #Eosinphils 0.5 thou/uL (0.0-0.7); #Monocytes 1.1 thou/uL (0.11-0.59); #Neutrophils 7.2 thou/uL (1.40-6.50); %Basophils 0.4 % (0.0-1.0); %Eosinophils 4.6 % (0.0-10.0); %Lymphocytes 25.4 % (21.0-51.0); %Neutrophils 60.6 % (42.0-75.0); Hemoglobin 11.6 g/dL (14.0-18.0); Mean Corpuscular Volume 84.4 fL (78.0-98.0); Mean Platelet Volume 8.1 fL (7.4-10.4); Platelet Count 253 thou/uL (130-400); Red Blood Cell (RBC) Count 4.28 mill/uL (4.70-6.10); White Blood Cell (WBC) Count 11.9 thou/uL (4.8-10.8)
[2020-07-08] MEDS: Ferrous Gluconate 324 MG TAB PO SCH (08:36)
[2020-07-08] MEDS: metFORMIN 500 MG TAB PO SCH (08:36)
[2020-07-08] MEDS: Lisinopril 10 MG TAB PO SCH (08:36)
[2020-07-08] MEDS: Hydrochlorothiazide 25 MG TAB PO SCH (08:36)
[2020-07-08] MEDS: Multivitamin W/ Minerals 1 TAB PO SCH ×2 (08:37→10:32)
[2020-07-08] MEDS: Senokot S 8.6-50 MG TAB PO SCH (08:37)
[2020-07-08] MEDS: Atorvastatin Calcium 20 MG TAB PO SCH (08:37)
[2020-07-08] MEDS: Aspirin 81 mg Enteric Coated Tablet PO SCH (08:37)
[2020-07-08] MEDS: Stress 600 With Zinc 1 TAB PO SCH (08:37)
[2020-07-08] MEDS: glyBURIDE 5 MG TAB PO SCH (08:37)
[2020-07-08] MEDS: Glimepiride 2 MG TAB PO SCH (08:42)
[2020-07-08] MEDS: Rifampin 300 MG CAP PO SCH (11:06)
[2020-07-08 11:42] VITALS: BP 127/83; TEMP 98
== END 2020-07-08 14:27 | disposition home or self-care (01) | DRG 466 ==
LOC: SDC 10:53 → EDSTATUS 13:45 → SJJU 16:48 → OBSVTOIN 16:54
PROVIDERS: ADMIT Orthopaedic Surgery; ATTEND Orthopaedic Surgery
PROC: 0SRC0J9 Replacement of Right Knee Joint with Synthetic Substitute, Cemented, Open Approach (ICD-10-PCS; principal; 2020-06-28)
PROC: 0SPC0JZ Removal of Synthetic Substitute from Right Knee Joint, Open Approach (ICD-10-PCS; 2020-06-28)
PROC: 3E0T3BZ Introduction of Anesthetic Agent into Peripheral Nerves and Plexi, Percutaneous Approach (ICD-10-PCS; 2020-06-29)
PROC: 02HV33Z Insertion of Infusion Device into Superior Vena Cava, Percutaneous Approach (ICD-10-PCS; 2020-07-01)
PROC: B518ZZA Fluoroscopy of Superior Vena Cava, Guidance (ICD-10-PCS; 2020-07-01)
PROC: B548ZZA Ultrasonography of Superior Vena Cava, Guidance (ICD-10-PCS; 2020-07-01)
DX: T84.53XA Infection and inflammatory reaction due to internal right knee prosthesis, initial encounter (principal); A41.9 Sepsis, unspecified organism; Z68.41 Body mass index [BMI] 40.0-44.9, adult; I69.351 Hemiplegia and hemiparesis following cerebral infarction affecting right dominant side; M00.061 Staphylococcal arthritis, right knee; Y83.1 Surgical operation with implant of artificial internal device as the cause of abnormal reaction of the patient, or of later complication, without mention of misadventure at the time of the procedure; Z20.822 Contact with and (suspected) exposure to COVID-19; Z96.652 Presence of left artificial knee joint; E11.22 Type 2 diabetes mellitus with diabetic chronic kidney disease; E66.01 Morbid (severe) obesity due to excess calories; G47.33 Obstructive sleep apnea (adult) (pediatric); M89.49 Other hypertrophic osteoarthropathy, multiple sites; K21.9 Gastro-esophageal reflux disease without esophagitis; I10 Essential (primary) hypertension; B95.7 Other staphylococcus as the cause of diseases classified elsewhere; Z90.49 Acquired absence of other specified parts of digestive tract; Z79.899 Other long term (current) drug therapy; Z79.82 Long term (current) use of aspirin; Z88.0 Allergy status to penicillin; Z79.4 Long term (current) use of insulin
CPT/HCPCS: 36415; 36416; 36569; 80048; 80053; 80202; 83036; 85025; 85027; 85652; 86140; 86850; 86900; 86901; 87040; 87081; 87635; 94640; C1713; C1751; C1776; J1644; J1815; J1885; J1956; J2250; J2405; J2704; J2795; J3010; J3260; J3370; J3490; J7620; Q0163; U0003; U0005

== ENCOUNTER 2020-07-27 11:51 | Emergency (ER) | payer OTHER ==
[2020-07-27] MEDS ORDERED: Sterile Water 10 ML VIAL IVP SCH (13:30)
[2020-07-27] MEDS ORDERED: Activase 2 MG VIAL CATH SCH (13:30)
== END 2020-07-27 15:23 | disposition home or self-care (01) ==
LOC: ERS 11:51
DX: T82.594A Other mechanical complication of infusion catheter, initial encounter (principal); I10 Essential (primary) hypertension; Z79.82 Long term (current) use of aspirin; Z86.73 Personal history of transient ischemic attack (TIA), and cerebral infarction without residual deficits; Z79.899 Other long term (current) drug therapy
CPT/HCPCS: 71045; 96374; J2997

== ENCOUNTER 2020-12-16 19:00 | Outpatient (CLI) | payer OTHER | END 2020-12-16 19:01 | disposition home or self-care (01) | LOC: SLEEPLAB 19:00 | PROVIDERS: ATTEND Internal Medicine Pulmonary Disease | DX: G47.33 Obstructive sleep apnea (adult) (pediatric) (principal); G25.81 Restless legs syndrome; G47.61 Periodic limb movement disorder; R53.83 Other fatigue; R40.0 Somnolence; E66.9 Obesity, unspecified; R06.83 Snoring; I63.9 Cerebral infarction, unspecified; Z68.41 Body mass index [BMI] 40.0-44.9, adult | CPT/HCPCS: 95810 ==

== ENCOUNTER 2021-04-24 16:11 | Emergency (ER) | payer OTHER ==
[2021-04-24 17:04] LABS: #Eosinphils 0.3 thou/uL (0.0-0.7); #Lymphocytes 2.3 thou/uL (1.20-3.40); #Neutrophils 7.4 thou/uL (1.40-6.50); %Basophils 0.4 % (0.0-1.0); %Eosinophils 2.9 % (0.0-10.0); %Lymphocytes 20.6 % (21.0-51.0); %Monocytes 9.4 % (0.0-10.0); %Neutrophils 66.6 % (42.0-75.0); Mean Corpuscular Hemoglobin 29.8 pg (27.0-31.0); Mean Corpuscular Volume 90.3 fL (78.0-98.0); Mean Platelet Volume 8.9 fL (7.4-10.4); Platelet Count 198 thou/uL (130-400); RBC Distribution Width 12.9 % (11.5-14.5); Red Blood Cell (RBC) Count 5.35 mill/uL (4.70-6.10); White Blood Cell (WBC) Count 11.1 thou/uL (4.8-10.8)
[2021-04-24 17:26] LABS: ALT (SGPT) 12 U/L (8-55); AST (SGOT) 22 U/L (5-34); Albumin 4.1 g/dL (3.5-5.0); Alkaline Phosphatase 111 U/L (40-110); Anion Gap 16 mmol/L (10-20); BUN (Urea Nitrogen) 18 mg/dL (8.4-25.7); Bilirubin, Total 1.3 mg/dL (0.2-1.2); Calc. Creatinine Clearance 0 mL/min (70-130); Calcium 9.1 mg/dL (7.8-10.44); Carbon Dioxide 24 mmol/L (22-29); Chloride 92 mmol/L (98-107); Globulin 3.5 g/dL (2.4-3.5); Glucose 407 mg/dL (70-105); Potassium 3.7 mmol/L (3.5-5.1); Protein, Total 7.6 g/dL (6.0-8.3); Sodium 128 mmol/L (136-145)
[2021-04-24 18:26] LABS: Bilirubin Negative (Negative); Blood, Urine Negative (Negative); Clarity Clear (Clear); Glucose, Urine (Dipstick) Greater than 1000 mg/dL (Negative); Ketone, Urine Negative (Negative); Leukocyte Negative Leu/uL (Negative); Nitrite Negative (Negative); Protein, Urine (Dipstick) Negative (Neg-Trace); Specific Gravity, Urine 1.031 (1.002-1.036); Urobilinogen Normal mg/dL (Less than 2); pH, Urine 5.5 (5.0-9.0)
== END 2021-04-24 19:31 | disposition home or self-care (01) ==
LOC: ERS 16:11
DX: E11.65 Type 2 diabetes mellitus with hyperglycemia (principal); J01.90 Acute sinusitis, unspecified; I10 Essential (primary) hypertension; Z86.73 Personal history of transient ischemic attack (TIA), and cerebral infarction without residual deficits; Z79.4 Long term (current) use of insulin; Z79.84 Long term (current) use of oral hypoglycemic drugs; Z79.899 Other long term (current) drug therapy
CPT/HCPCS: 36415; 36416; 71045; 80053; 81003; 82010; 85025

== ENCOUNTER 2021-06-26 13:39 | Outpatient (CLI) | payer OTHER | END 2021-06-26 13:40 | disposition home or self-care (01) | LOC: BICRAD 13:39 | PROVIDERS: ATTEND Nurse Practitioner Family | DX: R05.3 Chronic cough (principal) | CPT/HCPCS: 71046 ==

== ENCOUNTER 2021-08-20 14:35 | Outpatient (CLI) | payer OTHER ==
[2021-08-20 16:25] LABS: Anion Gap 16 mmol/L (10-20); BUN (Urea Nitrogen) 15 mg/dL (8.4-25.7); Calc. Creatinine Clearance 0 mL/min (70-130); Calcium 9.1 mg/dL (7.8-10.44); Carbon Dioxide 26 mmol/L (22-29); Chloride 99 mmol/L (98-107); Glucose 396 mg/dL (70-105); Potassium 3.8 mmol/L (3.5-5.1); Sodium 137 mmol/L (136-145)
== END 2021-08-20 14:36 | disposition home or self-care (01) ==
LOC: LABBT 14:35
PROVIDERS: ATTEND Otolaryngology Otology & Neurotology
DX: Z01.818 Encounter for other preprocedural examination (principal); H71.92 Unspecified cholesteatoma, left ear; Z20.822 Contact with and (suspected) exposure to COVID-19
CPT/HCPCS: 80048; 93005; 93010; U0003; U0005

== ENCOUNTER 2021-08-25 06:49 | Day surgery (SDC) | payer OTHER ==
[2021-08-21 14:18] VITALS: BMI 42.2
[~2021-08-25 06:49] MED LIST changes: -Heparin 1,000 UNITS/ML VIAL ONE; +fentaNYL Citrate/PF 100 MCG/2 ML SYRINGE ONE
[2021-08-25] MEDS ORDERED: Bacitracin Zinc Ointment 30 gm TUBE ONE (07:49)
[2021-08-25] MEDS ORDERED: Bupivacaine 0.25% HCL 30 ML VIAL ONE (07:49)
[2021-08-25] MEDS ORDERED: Ciprofloxacin 0.2% Otic (0.25ML CONTAINER) ONE (07:49)
[2021-08-25] MEDS ORDERED: Lidocaine 1% w/Epinephrine 1:100K 20 ML VIAL ONE (07:49)
[2021-08-25] MEDS ORDERED: EPINEPHrine 1 MG/ML AMP ONE (07:49)
[2021-08-25] MEDS ORDERED: Clindamycin/D5W 900 mg/50 ml Premix Bag ONE (07:59)
[2021-08-25] MEDS ORDERED: Dexamethasone 20 MG/5 ML VIAL ONE (08:04)
[2021-08-25] MEDS ORDERED: Lidocaine 1% PF 5 ML VIAL ONE (08:04)
[2021-08-25] MEDS ORDERED: PROPOFOL 200 MG/20 ML VIAL ONE (08:04)
[2021-08-25] MEDS ORDERED: PHENYLEPHRINE-NS 100 MCG/ML 10 ML SYRINGE ONE (08:04)
[2021-08-25] MEDS ORDERED: Ondansetron PF 4 MG/2 ML Vial ONE (08:04)
[2021-08-25] MEDS ORDERED: ePHEDrine 50 MG/ML VIAL ONE (08:04)
[2021-08-25] MEDS ORDERED: Rocuronium Bromide 10 MG/ML (10ML VIAL) ONE (08:04)
[2021-08-25] MEDS ORDERED: Glycopyrrolate 0.2 MG/ML 5 ML SYRINGE ONE (08:04)
[2021-08-25] MEDS ORDERED: Meperidine HCl/PF 25 MG/ML VIAL ONE (10:59)
[2021-08-25] MEDS ORDERED: HYDROcodone/Acetaminophen 5/325 mg Tablet ONE (11:26)
== END 2021-08-25 12:30 | disposition home or self-care (01) ==
LOC: SDC 06:49
PROVIDERS: ATTEND Otolaryngology Otology & Neurotology
PROC: 0NR607Z Replacement of Left Temporal Bone with Autologous Tissue Substitute, Open Approach (ICD-10-PCS; principal; 2021-08-25)
DX: H71.92 Unspecified cholesteatoma, left ear (principal); H90.3 Sensorineural hearing loss, bilateral; H69.83 Other specified disorders of Eustachian tube, bilateral; I10 Essential (primary) hypertension; E11.9 Type 2 diabetes mellitus without complications; K21.9 Gastro-esophageal reflux disease without esophagitis; Z79.4 Long term (current) use of insulin; Z79.82 Long term (current) use of aspirin; Z79.84 Long term (current) use of oral hypoglycemic drugs; Z79.899 Other long term (current) drug therapy; Z88.0 Allergy status to penicillin
CPT/HCPCS: 36416; C1776; J0171; J1100; J2175; J2405; J2704; J3490; S0020

== ENCOUNTER 2021-09-02 17:49 | Inpatient (IN) | payer OTHER ==
[~2021-09-02 17:49] MED LIST changes: +ISOVUE-370 76%-LOCM 1 ML ONE; -fentaNYL Citrate/PF 100 MCG/2 ML SYRINGE ONE
[2021-09-02 18:46] LABS: #Eosinphils 0.2 thou/uL (0.0-0.7); #Monocytes 0.8 thou/uL (0.11-0.59); #Neutrophils 8.5 thou/uL (1.40-6.50); %Basophils 0.2 % (0.0-1.0); %Eosinophils 1.5 % (0.0-10.0); %Lymphocytes 24.1 % (21.0-51.0); %Monocytes 6.5 % (0.0-10.0); %Neutrophils 67.7 % (42.0-75.0); Hemoglobin 14.5 g/dL (14.0-18.0); Mean Corpuscular HGB CONC 32.4 g/dL (32.0-36.0); Mean Corpuscular Hemoglobin 29.5 pg (27.0-31.0); Mean Platelet Volume 8.3 fL (7.4-10.4); Platelet Count 248 thou/uL (130-400); RBC Distribution Width 13.3 % (11.5-14.5); Red Blood Cell (RBC) Count 4.92 mill/uL (4.70-6.10); White Blood Cell (WBC) Count 12.6 thou/uL (4.8-10.8)
[2021-09-02 19:05] LABS: ALT (SGPT) 9 U/L (8-55); AST (SGOT) 16 U/L (5-34); Albumin 3.9 g/dL (3.5-5.0); Alkaline Phosphatase 94 U/L (40-110); Anion Gap 13 mmol/L (10-20); BUN (Urea Nitrogen) 12 mg/dL (8.4-25.7); Bilirubin, Total 1.1 mg/dL (0.2-1.2); Calc. Creatinine Clearance 0 mL/min (70-130); Calcium 9.4 mg/dL (7.8-10.44); Carbon Dioxide 29 mmol/L (22-29); Chloride 95 mmol/L (98-107); Globulin 3.3 g/dL (2.4-3.5); Glucose 310 mg/dL (70-105); Potassium 3.9 mmol/L (3.5-5.1); Protein, Total 7.2 g/dL (6.0-8.3); Sodium 133 mmol/L (136-145)
[2021-09-02] MEDS ORDERED: Vancomycin 1 GM/200 ML BAG ONE (19:08)
[2021-09-02] MEDS ORDERED: Sodium Chloride 0.9% 1,000 ML IV SCH (23:00)
[2021-09-02] MEDS ORDERED: Bacitracin 1 PK TOP PRN (23:02)
[2021-09-02] MEDS ORDERED: Ondansetron PF 4 MG/2 ML Vial IVP PRN (23:15)
[2021-09-02] MEDS ORDERED: Acetaminophen 325 MG TAB PO PRN (23:15)
[2021-09-02] MEDS ORDERED: Ondansetron ODT 4 MG TAB SL PRN (23:15)
[2021-09-02] MEDS ORDERED: Vancomycin 1 GM in Premix Bag 1 BAG IVPB SCH (23:15)
[2021-09-02 23:39] LABS: Hemoglobin A1c 10.5 % (4.0-6.0)
[2021-09-03 00:18] VITALS: BMI 42.0
[2021-09-03 00:18] LABS: SARS-CoV-2 NAA Rapid Test Not Detected (NotDetected)
[2021-09-03] MEDS: HumaLOG 300 UNITS/3 ML VIAL SC PRN ×5 (00:47→20:15)
[2021-09-03] MEDS ORDERED: Insulin Glargine 30 UNITS/0.3 ML VIAL SC SCH ×4 (03:15→21:00)
[2021-09-03] MEDS ORDERED: Lantus 1000 UNITS/10 ML VIAL SC SCH (03:15)
[2021-09-03 05:41] LABS: #Basophils 0.1 thou/uL (0.0-0.2); #Eosinphils 0.2 thou/uL (0.0-0.7); #Lymphocytes 2.7 thou/uL (1.20-3.40); #Monocytes 0.9 thou/uL (0.11-0.59); #Neutrophils 5.9 thou/uL (1.40-6.50); %Basophils 0.6 % (0.0-1.0); %Eosinophils 2.2 % (0.0-10.0); %Lymphocytes 27.8 % (21.0-51.0); %Monocytes 9.3 % (0.0-10.0); %Neutrophils 60.1 % (42.0-75.0); Hemoglobin 12.8 g/dL (14.0-18.0); Mean Corpuscular HGB CONC 33.4 g/dL (32.0-36.0); Mean Corpuscular Hemoglobin 30.2 pg (27.0-31.0); Mean Corpuscular Volume 90.5 fL (78.0-98.0); Mean Platelet Volume 7.9 fL (7.4-10.4); Platelet Count 180 thou/uL (130-400); RBC Distribution Width 13.2 % (11.5-14.5); Red Blood Cell (RBC) Count 4.23 mill/uL (4.70-6.10); White Blood Cell (WBC) Count 9.9 thou/uL (4.8-10.8)
[2021-09-03 05:58] LABS: ALT (SGPT) 7 U/L (8-55); AST (SGOT) 13 U/L (5-34); Albumin 3.1 g/dL (3.5-5.0); Alkaline Phosphatase 78 U/L (40-110); Anion Gap 13 mmol/L (10-20); BUN (Urea Nitrogen) 10 mg/dL (8.4-25.7); Bilirubin, Total 0.7 mg/dL (0.2-1.2); Calc. Creatinine Clearance 190 mL/min (70-130); Calcium 8.3 mg/dL (7.8-10.44); Carbon Dioxide 25 mmol/L (22-29); Chloride 100 mmol/L (98-107); Globulin 2.5 g/dL (2.4-3.5); Glucose 254 mg/dL (70-105); Potassium 3.7 mmol/L (3.5-5.1); Protein, Total 5.6 g/dL (6.0-8.3); Sodium 134 mmol/L (136-145)
[2021-09-03] MEDS: Fentanyl 100 MCG/2 ML VIAL SLOW IVP PRN ×3 (06:13→23:15)
[2021-09-03] MEDS ORDERED: Atorvastatin Calcium 20 MG TAB PO SCH (09:00)
[2021-09-03] MEDS: metFORMIN 500 MG TAB PO SCH (09:12)
[2021-09-03] MEDS: Aspirin 81 mg Enteric Coated Tablet PO SCH (09:12)
[2021-09-03] MEDS: VANCOMYCIN 2 GRAM/500 ML BAG 2 GM in Premix Bag 1 BAG IVPB SCH ×2 (12:54→20:53)
[2021-09-03] MEDS: Ciprofloxacin 0.2% Otic (0.25ML CONTAINER) L EAR SCH ×2 (14:16→20:53)
[2021-09-03] MEDS: Morphine 2 MG/ML VIAL SLOW IVP PRN (20:18)
[2021-09-04 04:49] LABS: #Basophils 0.1 thou/uL (0.0-0.2); #Eosinphils 0.3 thou/uL (0.0-0.7); #Monocytes 0.7 thou/uL (0.11-0.59); #Neutrophils 5.5 thou/uL (1.40-6.50); %Basophils 0.7 % (0.0-1.0); %Eosinophils 3.3 % (0.0-10.0); %Lymphocytes 31.1 % (21.0-51.0); %Monocytes 7.7 % (0.0-10.0); %Neutrophils 57.3 % (42.0-75.0); Hemoglobin 12.8 g/dL (14.0-18.0); Mean Corpuscular Hemoglobin 29.9 pg (27.0-31.0); Mean Corpuscular Volume 90.6 fL (78.0-98.0); Mean Platelet Volume 8.2 fL (7.4-10.4); Platelet Count 191 thou/uL (130-400); RBC Distribution Width 13.2 % (11.5-14.5); Red Blood Cell (RBC) Count 4.29 mill/uL (4.70-6.10); White Blood Cell (WBC) Count 9.6 thou/uL (4.8-10.8)
[2021-09-04 05:09] LABS: Anion Gap 12 mmol/L (10-20); BUN (Urea Nitrogen) 11 mg/dL (8.4-25.7); Calc. Creatinine Clearance 206 mL/min (70-130); Calcium 8.5 mg/dL (7.8-10.44); Carbon Dioxide 26 mmol/L (22-29); Chloride 100 mmol/L (98-107); Glucose 256 mg/dL (70-105); Potassium 3.8 mmol/L (3.5-5.1); Sodium 134 mmol/L (136-145)
[2021-09-04] MEDS: HumaLOG 300 UNITS/3 ML VIAL SC PRN ×2 (05:29→20:42)
[2021-09-04 07:02] LABS: Vancomycin, Trough 15.4 ug/mL
[2021-09-04] MEDS ORDERED: Dextrose 5% in Water 1,000 ML IV PRN (07:45)
[2021-09-04] MEDS ORDERED: Dextrose 50% Abboject 50 ML SYRINGE IVP PRN (07:45)
[2021-09-04] MEDS ORDERED: HumaLOG 300 UNITS/3 ML VIAL SC SCH (08:00)
[2021-09-04] MEDS: metFORMIN 500 MG TAB PO SCH ×3 (09:44→20:41)
[2021-09-04] MEDS: Ciprofloxacin 0.2% Otic (0.25ML CONTAINER) L EAR SCH ×3 (09:49→20:41)
[2021-09-04] MEDS: Aspirin 81 mg Enteric Coated Tablet PO SCH (09:49)
[2021-09-04] MEDS: Hydrochlorothiazide 25 MG TAB PO SCH (09:49)
[2021-09-04] MEDS: Losartan 25 MG TAB PO SCH (09:49)
[2021-09-04] MEDS: VANCOMYCIN 2 GRAM/500 ML BAG 2 GM in Premix Bag 1 BAG IVPB SCH ×2 (10:17→20:40)
[2021-09-04] MEDS: HumaLOG 300 UNITS/3 ML VIAL SC SCH ×2 (11:34→16:11)
[2021-09-04] MEDS ORDERED: Polyethylene Glycol 3350 17 GM Packet PO PRN (13:04)
[2021-09-04] MEDS ORDERED: Insulin Glargine 30 UNITS/0.3 ML VIAL SC SCH (14:30)
[2021-09-04] MEDS: Insulin Glargine 30 UNITS/0.3 ML VIAL SC SCH (20:41)
[2021-09-04] MEDS: Atorvastatin Calcium 40 MG TAB PO SCH (20:41)
[2021-09-05 05:41] LABS: #Eosinphils 0.3 thou/uL (0.0-0.7); #Monocytes 0.8 thou/uL (0.11-0.59); #Neutrophils 5.4 thou/uL (1.40-6.50); %Basophils 0.5 % (0.0-1.0); %Eosinophils 3.4 % (0.0-10.0); %Lymphocytes 31.4 % (21.0-51.0); %Monocytes 8.2 % (0.0-10.0); %Neutrophils 56.6 % (42.0-75.0); Hemoglobin 12.8 g/dL (14.0-18.0); Mean Corpuscular HGB CONC 34.2 g/dL (32.0-36.0); Mean Corpuscular Hemoglobin 30.7 pg (27.0-31.0); Platelet Count 191 thou/uL (130-400); RBC Distribution Width 13.1 % (11.5-14.5); Red Blood Cell (RBC) Count 4.17 mill/uL (4.70-6.10); White Blood Cell (WBC) Count 9.5 thou/uL (4.8-10.8)
[2021-09-05 05:55] LABS: Anion Gap 12 mmol/L (10-20); BUN (Urea Nitrogen) 9 mg/dL (8.4-25.7); Calc. Creatinine Clearance 211 mL/min (70-130); Calcium 8.3 mg/dL (7.8-10.44); Carbon Dioxide 26 mmol/L (22-29); Chloride 103 mmol/L (98-107); Glucose 167 mg/dL (70-105); Potassium 3.6 mmol/L (3.5-5.1); Sodium 137 mmol/L (136-145)
[2021-09-05] MEDS ORDERED: fentaNYL Citrate/PF 100 MCG/2 ML SYRINGE ONE (05:59)
[2021-09-05] MEDS ORDERED: Dexmedetomidine 200 MCG/2 ML VIAL ONE (05:59)
[2021-09-05] MEDS ORDERED: Lidocaine 1% w/Epinephrine 1:100K 20 ML VIAL ONE (06:27)
[2021-09-05] MEDS ORDERED: Bacitracin Zinc Ointment 30 gm TUBE ONE (06:27)
[2021-09-05] MEDS ORDERED: Glycopyrrolate 0.2 MG/ML 5 ML SYRINGE ONE (07:08)
[2021-09-05] MEDS ORDERED: Ondansetron PF 4 MG/2 ML Vial ONE (07:08)
[2021-09-05] MEDS ORDERED: Lidocaine 1% PF 5 ML VIAL ONE (07:08)
[2021-09-05] MEDS ORDERED: ePHEDrine 50 MG/ML VIAL ONE (07:08)
[2021-09-05] MEDS ORDERED: PROPOFOL 200 MG/20 ML VIAL ONE (07:08)
[2021-09-05] MEDS ORDERED: Dexamethasone 20 MG/5 ML VIAL ONE (07:08)
[2021-09-05] MEDS ORDERED: Promethazine HCl 25 MG/ML VIAL IVPB PRN (07:46)
[2021-09-05] MEDS ORDERED: Promethazine HCl 25 MG/ML VIAL IM PRN (07:46)
[2021-09-05] MEDS ORDERED: Ondansetron HCl/PF 4 MG/2 ML Vial IVP PRN (07:46)
[2021-09-05] MEDS: Liraglutide [Victoza 2-Pak] 0.6 MG/0.1 ML Pen.Injctr SC SCH (09:23)
[2021-09-05] MEDS: Losartan 25 MG TAB PO SCH (09:25)
[2021-09-05] MEDS: Hydrochlorothiazide 25 MG TAB PO SCH (09:26)
[2021-09-05] MEDS: HumaLOG 300 UNITS/3 ML VIAL SC SCH ×3 (09:26→17:05)
[2021-09-05] MEDS: Aspirin 81 mg Enteric Coated Tablet PO SCH (09:26)
[2021-09-05] MEDS: metFORMIN 500 MG TAB PO SCH ×2 (09:26→17:04)
[2021-09-05] MEDS: NIFEdipine XL 60 MG TAB PO SCH (09:26)
[2021-09-05] MEDS: VANCOMYCIN 2 GRAM/500 ML BAG 2 GM in Premix Bag 1 BAG IVPB SCH ×2 (09:27→20:27)
[2021-09-05] MEDS: Insulin Glargine 30 UNITS/0.3 ML VIAL SC SCH ×2 (09:28→20:57)
[2021-09-05] MEDS: Ciprofloxacin 0.2% Otic (0.25ML CONTAINER) L EAR SCH ×3 (09:28→21:09)
[2021-09-05] MEDS: Polyethylene Glycol 3350 17 GM Packet PO SCH (09:29)
[2021-09-05] MEDS: HumaLOG 300 UNITS/3 ML VIAL SC PRN ×2 (17:05→21:04)
[2021-09-05] MEDS: Atorvastatin Calcium 40 MG TAB PO SCH (20:28)
[2021-09-06] MEDS ORDERED: Ibuprofen 200 MG TAB PO SCH (01:45)
[2021-09-06] MEDS: Fentanyl 100 MCG/2 ML VIAL SLOW IVP PRN (02:42)
[2021-09-06] MEDS: HumaLOG 300 UNITS/3 ML VIAL SC PRN (05:40)
[2021-09-06] MEDS: HumaLOG 300 UNITS/3 ML VIAL SC SCH ×3 (08:48→18:05)
[2021-09-06] MEDS: Insulin Glargine 30 UNITS/0.3 ML VIAL SC SCH ×2 (08:49→22:21)
[2021-09-06] MEDS: metFORMIN 500 MG TAB PO SCH ×2 (08:51→18:05)
[2021-09-06] MEDS: Aspirin 81 mg Enteric Coated Tablet PO SCH (08:51)
[2021-09-06] MEDS: NIFEdipine XL 60 MG TAB PO SCH (08:51)
[2021-09-06] MEDS: Losartan 25 MG TAB PO SCH (08:51)
[2021-09-06] MEDS: Hydrochlorothiazide 25 MG TAB PO SCH (08:52)
[2021-09-06] MEDS: VANCOMYCIN 2 GRAM/500 ML BAG 2 GM in Premix Bag 1 BAG IVPB SCH (08:52)
[2021-09-06] MEDS: Liraglutide [Victoza 2-Pak] 0.6 MG/0.1 ML Pen.Injctr SC SCH (08:53)
[2021-09-06] MEDS: Polyethylene Glycol 3350 17 GM Packet PO SCH (08:53)
[2021-09-06] MEDS: Ciprofloxacin 0.2% Otic (0.25ML CONTAINER) L EAR SCH ×3 (09:13→22:21)
[2021-09-06 10:48] LABS: #Eosinphils 0.1 thou/uL (0.0-0.7); #Lymphocytes 2.9 thou/uL (1.20-3.40); #Neutrophils 11.1 thou/uL (1.40-6.50); %Basophils 0.2 % (0.0-1.0); %Eosinophils 0.5 % (0.0-10.0); %Lymphocytes 19.2 % (21.0-51.0); %Monocytes 6.6 % (0.0-10.0); %Neutrophils 73.5 % (42.0-75.0); Hemoglobin 13.1 g/dL (14.0-18.0); Mean Corpuscular HGB CONC 32.7 g/dL (32.0-36.0); Mean Corpuscular Hemoglobin 29.8 pg (27.0-31.0); Mean Corpuscular Volume 91.1 fL (78.0-98.0); Mean Platelet Volume 7.8 fL (7.4-10.4); Platelet Count 228 thou/uL (130-400); RBC Distribution Width 13.4 % (11.5-14.5); White Blood Cell (WBC) Count 15.1 thou/uL (4.8-10.8)
[2021-09-06 11:08] LABS: Anion Gap 15 mmol/L (10-20); BUN (Urea Nitrogen) 13 mg/dL (8.4-25.7); Calc. Creatinine Clearance 201 mL/min (70-130); Calcium 9.1 mg/dL (7.8-10.44); Carbon Dioxide 25 mmol/L (22-29); Chloride 100 mmol/L (98-107); Glucose 198 mg/dL (70-105); Potassium 3.7 mmol/L (3.5-5.1); Sodium 136 mmol/L (136-145)
[2021-09-06] MEDS: Linezolid 600 MG in Premix Bag 1 BAG IVPB SCH (22:09)
[2021-09-06] MEDS: Atorvastatin Calcium 40 MG TAB PO SCH (22:20)
[2021-09-07 05:42] LABS: #Eosinphils 0.2 thou/uL (0.0-0.7); #Lymphocytes 4.5 thou/uL (1.20-3.40); #Neutrophils 8.2 thou/uL (1.40-6.50); %Basophils 0.3 % (0.0-1.0); %Eosinophils 1.6 % (0.0-10.0); %Lymphocytes 32.3 % (21.0-51.0); %Neutrophils 58.8 % (42.0-75.0); Hemoglobin 13.5 g/dL (14.0-18.0); Mean Corpuscular HGB CONC 32.6 g/dL (32.0-36.0); Mean Corpuscular Hemoglobin 29.7 pg (27.0-31.0); Mean Corpuscular Volume 91.3 fL (78.0-98.0); Platelet Count 220 thou/uL (130-400); RBC Distribution Width 13.7 % (11.5-14.5); Red Blood Cell (RBC) Count 4.54 mill/uL (4.70-6.10); White Blood Cell (WBC) Count 13.9 thou/uL (4.8-10.8)
[2021-09-07 05:58] LABS: Anion Gap 15 mmol/L (10-20); BUN (Urea Nitrogen) 13 mg/dL (8.4-25.7); Calc. Creatinine Clearance 214 mL/min (70-130); Calcium 8.8 mg/dL (7.8-10.44); Carbon Dioxide 27 mmol/L (22-29); Chloride 100 mmol/L (98-107); Glucose 75 mg/dL (70-105); Potassium 3.6 mmol/L (3.5-5.1); Sodium 138 mmol/L (136-145)
[2021-09-07] MEDS: HumaLOG 300 UNITS/3 ML VIAL SC SCH ×3 (08:13→16:06)
[2021-09-07] MEDS: Linezolid 600 MG in Premix Bag 1 BAG IVPB SCH ×2 (08:13→21:37)
[2021-09-07] MEDS: Aspirin 81 mg Enteric Coated Tablet PO SCH (08:14)
[2021-09-07] MEDS: Losartan 25 MG TAB PO SCH (08:14)
[2021-09-07] MEDS: Insulin Glargine 30 UNITS/0.3 ML VIAL SC SCH ×2 (08:14→21:41)
[2021-09-07] MEDS: Polyethylene Glycol 3350 17 GM Packet PO SCH (08:14)
[2021-09-07] MEDS: NIFEdipine XL 60 MG TAB PO SCH (08:15)
[2021-09-07] MEDS: metFORMIN 500 MG TAB PO SCH ×2 (08:15→16:05)
[2021-09-07] MEDS: Hydrochlorothiazide 25 MG TAB PO SCH (08:15)
[2021-09-07] MEDS: Ciprofloxacin 0.2% Otic (0.25ML CONTAINER) L EAR SCH ×2 (09:38→12:36)
[2021-09-07] MEDS: Liraglutide [Victoza 2-Pak] 0.6 MG/0.1 ML Pen.Injctr SC SCH (09:38)
[2021-09-07] MEDS: HumaLOG 300 UNITS/3 ML VIAL SC PRN (16:58)
[2021-09-07] MEDS: Atorvastatin Calcium 40 MG TAB PO SCH (21:39)
[2021-09-08] MEDS: Ciprofloxacin 0.2% Otic (0.25ML CONTAINER) L EAR SCH ×4 (01:12→21:28)
[2021-09-08] MEDS: Morphine 2 MG/ML VIAL SLOW IVP PRN (01:13)
[2021-09-08 06:07] LABS: #Basophils 0.1 thou/uL (0.0-0.2); #Eosinphils 0.3 thou/uL (0.0-0.7); #Lymphocytes 5.1 thou/uL (1.20-3.40); #Neutrophils 7.5 thou/uL (1.40-6.50); %Basophils 0.5 % (0.0-1.0); %Eosinophils 2.2 % (0.0-10.0); %Lymphocytes 36.4 % (21.0-51.0); %Monocytes 7.4 % (0.0-10.0); %Neutrophils 53.5 % (42.0-75.0); Hemoglobin 14.5 g/dL (14.0-18.0); Mean Corpuscular HGB CONC 32.7 g/dL (32.0-36.0); Mean Corpuscular Volume 91.7 fL (78.0-98.0); Mean Platelet Volume 8.1 fL (7.4-10.4); Platelet Count 224 thou/uL (130-400); RBC Distribution Width 13.5 % (11.5-14.5); Red Blood Cell (RBC) Count 4.84 mill/uL (4.70-6.10); White Blood Cell (WBC) Count 13.9 thou/uL (4.8-10.8)
[2021-09-08 06:24] LABS: Anion Gap 13 mmol/L (10-20); BUN (Urea Nitrogen) 15 mg/dL (8.4-25.7); Calc. Creatinine Clearance 184 mL/min (70-130); Calcium 9.2 mg/dL (7.8-10.44); Carbon Dioxide 30 mmol/L (22-29); Chloride 100 mmol/L (98-107); Glucose 67 mg/dL (70-105); Potassium 3.6 mmol/L (3.5-5.1); Sodium 139 mmol/L (136-145)
[2021-09-08] MEDS: NIFEdipine XL 60 MG TAB PO SCH (09:13)
[2021-09-08] MEDS: metFORMIN 500 MG TAB PO SCH ×2 (09:15→17:09)
[2021-09-08] MEDS: Aspirin 81 mg Enteric Coated Tablet PO SCH (09:15)
[2021-09-08] MEDS: Hydrochlorothiazide 25 MG TAB PO SCH (09:15)
[2021-09-08] MEDS: Polyethylene Glycol 3350 17 GM Packet PO SCH (09:16)
[2021-09-08] MEDS: Losartan 25 MG TAB PO SCH (09:16)
[2021-09-08] MEDS: HumaLOG 300 UNITS/3 ML VIAL SC SCH ×3 (09:20→17:08)
[2021-09-08] MEDS: Insulin Glargine 30 UNITS/0.3 ML VIAL SC SCH ×2 (09:23→21:27)
[2021-09-08] MEDS: Liraglutide [Victoza 2-Pak] 0.6 MG/0.1 ML Pen.Injctr SC SCH (10:33)
[2021-09-08] MEDS: Linezolid 600 MG in Premix Bag 1 BAG IVPB SCH ×2 (10:33→21:28)
[2021-09-08] MEDS ORDERED: Promethazine HCl 12.5 MG in Sodium Chloride 0.9% 50 ML IVPB PRN (18:37)
[2021-09-08] MEDS: Atorvastatin Calcium 40 MG TAB PO SCH (21:27)
[2021-09-09 05:25] LABS: #Eosinphils 0.3 thou/uL (0.0-0.7); #Lymphocytes 3.4 thou/uL (1.20-3.40); #Neutrophils 8.3 thou/uL (1.40-6.50); %Basophils 0.3 % (0.0-1.0); %Eosinophils 1.9 % (0.0-10.0); %Lymphocytes 26.1 % (21.0-51.0); %Neutrophils 63.7 % (42.0-75.0); Hemoglobin 13.8 g/dL (14.0-18.0); Mean Corpuscular HGB CONC 32.8 g/dL (32.0-36.0); Mean Corpuscular Hemoglobin 30.1 pg (27.0-31.0); Mean Corpuscular Volume 91.7 fL (78.0-98.0); Mean Platelet Volume 7.7 fL (7.4-10.4); Platelet Count 209 thou/uL (130-400); RBC Distribution Width 13.4 % (11.5-14.5); White Blood Cell (WBC) Count 13.1 thou/uL (4.8-10.8)
[2021-09-09 05:46] LABS: Anion Gap 14 mmol/L (10-20); BUN (Urea Nitrogen) 15 mg/dL (8.4-25.7); Calc. Creatinine Clearance 182 mL/min (70-130); Calcium 9.3 mg/dL (7.8-10.44); Carbon Dioxide 28 mmol/L (22-29); Chloride 100 mmol/L (98-107); Glucose 64 mg/dL (70-105); Potassium 3.7 mmol/L (3.5-5.1); Sodium 138 mmol/L (136-145)
[2021-09-09] MEDS: metFORMIN 500 MG TAB PO SCH ×2 (08:54→16:18)
[2021-09-09] MEDS: Aspirin 81 mg Enteric Coated Tablet PO SCH (08:54)
[2021-09-09] MEDS: NIFEdipine XL 60 MG TAB PO SCH (08:55)
[2021-09-09] MEDS: Hydrochlorothiazide 25 MG TAB PO SCH (08:55)
[2021-09-09] MEDS: Losartan 25 MG TAB PO SCH (08:55)
[2021-09-09] MEDS: Polyethylene Glycol 3350 17 GM Packet PO SCH (08:55)
[2021-09-09] MEDS: Linezolid 600 MG in Premix Bag 1 BAG IVPB SCH (08:56)
[2021-09-09] MEDS: Liraglutide [Victoza 2-Pak] 0.6 MG/0.1 ML Pen.Injctr SC SCH (08:57)
[2021-09-09] MEDS: HumaLOG 300 UNITS/3 ML VIAL SC SCH ×3 (09:12→17:40)
[2021-09-09] MEDS: Insulin Glargine 30 UNITS/0.3 ML VIAL SC SCH ×2 (09:13→23:12)
[2021-09-09] MEDS: Ciprofloxacin 0.2% Otic (0.25ML CONTAINER) L EAR SCH ×3 (09:41→21:23)
[2021-09-09] MEDS: Ondansetron PF 4 MG/2 ML Vial IVP PRN (14:27)
[2021-09-09] MEDS: Linezolid 600 MG TAB PO SCH (21:23)
[2021-09-09] MEDS: Atorvastatin Calcium 40 MG TAB PO SCH (21:23)
[2021-09-09] MEDS: Morphine 2 MG/ML VIAL SLOW IVP PRN (21:23)
[2021-09-10 05:51] LABS: #Basophils 0.1 thou/uL (0.0-0.2); #Eosinphils 0.3 thou/uL (0.0-0.7); #Lymphocytes 3.8 thou/uL (1.20-3.40); #Monocytes 0.9 thou/uL (0.11-0.59); #Neutrophils 7.4 thou/uL (1.40-6.50); %Basophils 0.6 % (0.0-1.0); %Eosinophils 2.6 % (0.0-10.0); %Lymphocytes 30.1 % (21.0-51.0); %Monocytes 7.2 % (0.0-10.0); %Neutrophils 59.4 % (42.0-75.0); Hemoglobin 14.4 g/dL (14.0-18.0); Mean Corpuscular HGB CONC 32.3 g/dL (32.0-36.0); Mean Corpuscular Hemoglobin 29.7 pg (27.0-31.0); Mean Corpuscular Volume 91.9 fL (78.0-98.0); Platelet Count 209 thou/uL (130-400); RBC Distribution Width 13.5 % (11.5-14.5); Red Blood Cell (RBC) Count 4.85 mill/uL (4.70-6.10); White Blood Cell (WBC) Count 12.5 thou/uL (4.8-10.8)
[2021-09-10 06:44] LABS: Anion Gap 16 mmol/L (10-20); BUN (Urea Nitrogen) 17 mg/dL (8.4-25.7); Calc. Creatinine Clearance 197 mL/min (70-130); Calcium 9.1 mg/dL (7.8-10.44); Carbon Dioxide 27 mmol/L (22-29); Chloride 98 mmol/L (98-107); Estimated GFR 101; Glucose 101 mg/dL (70-105); Potassium 3.8 mmol/L (3.5-5.1); Sodium 137 mmol/L (136-145)
[2021-09-10 08:22] VITALS: BP 128/84; TEMP 97.6
[2021-09-10] MEDS: Linezolid 600 MG TAB PO SCH (08:53)
[2021-09-10] MEDS: metFORMIN 500 MG TAB PO SCH (08:53)
[2021-09-10] MEDS: Hydrochlorothiazide 25 MG TAB PO SCH (08:54)
[2021-09-10] MEDS: NIFEdipine XL 60 MG TAB PO SCH (08:54)
[2021-09-10] MEDS: Losartan 25 MG TAB PO SCH (08:55)
[2021-09-10] MEDS: Aspirin 81 mg Enteric Coated Tablet PO SCH (08:55)
[2021-09-10] MEDS: Ciprofloxacin 0.2% Otic (0.25ML CONTAINER) L EAR SCH ×2 (08:57→15:45)
[2021-09-10] MEDS: Insulin Glargine 30 UNITS/0.3 ML VIAL SC SCH (08:57)
[2021-09-10] MEDS: HumaLOG 300 UNITS/3 ML VIAL SC SCH ×2 (08:58→12:19)
[2021-09-10] MEDS: Polyethylene Glycol 3350 17 GM Packet PO SCH (09:01)
[2021-09-10] MEDS: Liraglutide [Victoza 2-Pak] 0.6 MG/0.1 ML Pen.Injctr SC SCH (09:01)
[2021-09-10] MEDS: Ondansetron PF 4 MG/2 ML Vial IVP PRN (12:19)
== END 2021-09-10 16:35 | disposition home or self-care (01) | DRG 856 ==
LOC: ERS 17:49 → ERHOLD 20:51 → NEURO 22:51 → MSONC 09-03 18:24
PROVIDERS: ADMIT Internal Medicine; ATTEND Internal Medicine
PROC: 099 Ear, Nose, Sinus, Drainage (ICD-10-PCS; principal; 2021-09-05)
DX: T81.49XA Infection following a procedure, other surgical site, initial encounter (principal); E11.10 Type 2 diabetes mellitus with ketoacidosis without coma; H70.002 Acute mastoiditis without complications, left ear; I69.951 Hemiplegia and hemiparesis following unspecified cerebrovascular disease affecting right dominant side; Z68.41 Body mass index [BMI] 40.0-44.9, adult; E66.9 Obesity, unspecified; G51.0 Bell's palsy; Z20.822 Contact with and (suspected) exposure to COVID-19; I10 Essential (primary) hypertension; Y83.8 Other surgical procedures as the cause of abnormal reaction of the patient, or of later complication, without mention of misadventure at the time of the procedure; Z96.653 Presence of artificial knee joint, bilateral; Z98.84 Bariatric surgery status; Z88.0 Allergy status to penicillin; Z79.4 Long term (current) use of insulin; Z79.84 Long term (current) use of oral hypoglycemic drugs; Z79.82 Long term (current) use of aspirin; Z79.899 Other long term (current) drug therapy
CPT/HCPCS: 36415; 36416; 70450; 70481; 80048; 80053; 80202; 83036; 83605; 85025; 87040; 94760; 96374; J1100; J1815; J2020; J2270; J2405; J2704; J3010; J3370; J3490; J7050; Q9966; U0002; U0003; U0005

== ENCOUNTER 2022-04-27 15:09 | Outpatient (CLI) | payer OTHER | END 2022-04-27 15:10 | disposition home or self-care (01) | LOC: BICRAD 15:09 | PROVIDERS: ATTEND Nurse Practitioner Family | DX: M47.816 Spondylosis without myelopathy or radiculopathy, lumbar region (principal); M51.37 Other intervertebral disc degeneration, lumbosacral region | CPT/HCPCS: 72120 ==

== ENCOUNTER 2022-07-24 10:13 | Outpatient (CLI) | payer OTHER | END 2022-07-24 10:14 | disposition home or self-care (01) | LOC: BICRAD 10:13 | PROVIDERS: ATTEND Nurse Practitioner Family | DX: M46.1 Sacroiliitis, not elsewhere classified (principal); M25.751 Osteophyte, right hip | CPT/HCPCS: 72170 ==

== ENCOUNTER 2022-12-30 14:33 | Outpatient (CLI) | payer OTHER | END 2022-12-30 14:34 | disposition home or self-care (01) | LOC: BICRAD 14:33 | PROVIDERS: ATTEND Nurse Practitioner Family | DX: M54.2 Cervicalgia (principal); M47.812 Spondylosis without myelopathy or radiculopathy, cervical region; M43.12 Spondylolisthesis, cervical region; M48.02 Spinal stenosis, cervical region | CPT/HCPCS: 72052 ==

== ENCOUNTER 2023-01-06 12:48 | Outpatient (CLI) | payer OTHER | END 2023-01-06 12:49 | disposition home or self-care (01) | LOC: CT 12:48 | PROVIDERS: ATTEND Specialist | DX: H70.002 Acute mastoiditis without complications, left ear (principal); H74.91 Unspecified disorder of right middle ear and mastoid | CPT/HCPCS: 70480 ==

== ENCOUNTER 2023-05-09 10:01 | Emergency (ER) | payer OTHER ==
[2023-05-09 11:18] LABS: Influenza A by NAA Not Detected (NotDetected); Influenza B by NAA Not Detected (NotDetected); SARS-CoV-2 NAA Rapid Test Not Detected (NotDetected)
== END 2023-05-09 12:28 | disposition home or self-care (01) ==
LOC: ERS 10:01
DX: J06.9 Acute upper respiratory infection, unspecified (principal); I10 Essential (primary) hypertension; E11.9 Type 2 diabetes mellitus without complications; Z86.73 Personal history of transient ischemic attack (TIA), and cerebral infarction without residual deficits; Z79.82 Long term (current) use of aspirin; Z79.84 Long term (current) use of oral hypoglycemic drugs; Z79.4 Long term (current) use of insulin; Z79.899 Other long term (current) drug therapy; Z55.6 Problems related to health literacy; Z75.3 Unavailability and inaccessibility of health-care facilities
CPT/HCPCS: 71045

== ENCOUNTER 2023-07-21 16:00 | Outpatient (CLI) | payer OTHER | END 2023-07-21 16:01 | disposition home or self-care (01) | LOC: SLEEPLAB 16:00 | PROVIDERS: ATTEND Nurse Practitioner Family | DX: G47.33 Obstructive sleep apnea (adult) (pediatric) (principal); R06.83 Snoring; G47.00 Insomnia, unspecified; R09.02 Hypoxemia | CPT/HCPCS: 95811 ==

== ENCOUNTER 2024-03-30 12:50 | Outpatient (CLI) | payer OTHER ==
[2024-03-30 14:13] LABS: #Basophils 0.06 10x3/uL (0.0-0.2); %Basophils 0.6 % (0.0-1.0); %Eosinophils 1.8 % (0.0-10.0); %Lymphocytes 27.8 % (21.0-51.0); %Monocytes 7.8 % (0.0-10.0); %Neutrophils 61.6 % (42.0-75.0); Hematocrit 45.3 % (42.0-52.0); Hemoglobin 15.5 g/dL (14.0-18.0); Mean Corpuscular HGB CONC 34.2 g/dL (32.0-36.0); Mean Corpuscular Hemoglobin 29.9 pg (27.0-31.0); Mean Corpuscular Volume 87.5 fL (78.0-98.0); Mean Platelet Volume 11.5 fL (7.4-10.4); Platelet Count 167 10x3/uL (130-400); Red Blood Cell (RBC) Count 5.18 mill/uL (4.70-6.10)
[2024-03-30 14:33] LABS: Anion Gap 11 mmol/L (10-20); BUN (Urea Nitrogen) 16 mg/dL (8.4-25.7); Calc. Creatinine Clearance 0 mL/min (70-130); Calcium 8.9 mg/dL (7.8-10.44); Carbon Dioxide 25 mmol/L (22-29); Chloride 108 mmol/L (98-107); Estimated GFR 96; Glucose 98 mg/dL (70-105); Potassium 3.8 mmol/L (3.5-5.1); Sodium 140 mmol/L (136-145)
[2024-03-30 14:55] LABS: INR-International Normal Ratio 1.2; PTT 31.8 sec (22.9-36.1); Prothrombin Time 14.7 sec (12.0-14.7)
== END 2024-03-30 12:51 | disposition home or self-care (01) ==
LOC: LABBT 12:50
PROVIDERS: ATTEND Orthopaedic Surgery
DX: Z01.818 Encounter for other preprocedural examination (principal); M19.112 Post-traumatic osteoarthritis, left shoulder
CPT/HCPCS: 80048; 85025; 85610; 85730; 87081; 93005; 93010

== ENCOUNTER 2025-01-10 15:37 | Emergency (ER) | payer OTHER ==
[2025-01-10] MEDS ORDERED: Ketorolac Tromethamine 30 MG (1 mL) VIAL ONE (17:24)
[2025-01-10] MEDS ORDERED: Ondansetron PF 4 MG/2 ML Vial ONE (17:25)
[2025-01-10 17:33] LABS: #Basophils 0.05 10x3/uL (0.0-0.2); #Eosinophils 0.04 10x3/uL (0.0-0.7); #Monocytes 0.82 10x3/uL (0.11-0.59); #Neutrophils 14.60 10x3/uL (1.40-6.50); %Basophils 0.3 % (0.0-1.0); %Eosinophils 0.2 % (0.0-10.0); %Lymphocytes 8.0 % (21.0-51.0); %Monocytes 4.8 % (0.0-10.0); %Neutrophils 86.2 % (42.0-75.0); Hematocrit 48.3 % (42.0-52.0); Hemoglobin 15.5 g/dL (14.0-18.0); Mean Corpuscular Hemoglobin 29.7 pg (27.0-31.0); Mean Corpuscular Volume 92.5 fL (78.0-98.0); Platelet Count 192 10x3/uL (130-400); Red Blood Cell (RBC) Count 5.22 mill/uL (4.70-6.10); White Blood Cell (WBC) Count 16.96 10x3/uL (4.8-10.8)
[2025-01-10 17:55] LABS: ALT (SGPT) 13 U/L (Less than 45); AST (SGOT) 30 U/L (11-34); Albumin 4.5 g/dL (3.1-4.5); Alkaline Phosphatase 71 U/L (40-110); Anion Gap 19 mmol/L (10-20); BUN (Urea Nitrogen) 20 mg/dL (8.4-25.7); Bilirubin, Total 1.5 mg/dL (0.3-1.2); Calc. Creatinine Clearance 0 mL/min (70-130); Calcium 9.2 mg/dL (7.8-10.44); Carbon Dioxide 18 mmol/L (22-29); Chloride 106 mmol/L (98-107); Globulin 3.3 g/dL (2.4-3.5); Glucose 111 mg/dL (70-105); Lipase 18 U/L (8-78); Potassium 4.1 mmol/L (3.5-5.1); Sodium 139 mmol/L (136-145)
[2025-01-10 19:29] LABS: Bacteria/HPF None Seen HPF (None Seen); CAUTI Indications for Culture Pelvic or flank pain; Glucose, Urine (Dipstick) 50 mg/dL (Negative); Leukocyte Negative Leu/uL (Negative); Protein, Urine (Dipstick) Negative (Neg-Trace); RBC/HPF 21-50 HPF (0-3); Specific Gravity, Urine 1.017 (1.002-1.036); WBC/HPF 0-3 HPF (0-3)
[2025-01-10 19:33] LABS: Urine Culture Reflex No No
== END 2025-01-10 20:00 | disposition home or self-care (01) ==
LOC: ERS 15:37
DX: N13.2 Hydronephrosis with renal and ureteral calculous obstruction (principal); I10 Essential (primary) hypertension; E11.9 Type 2 diabetes mellitus without complications; Z86.73 Personal history of transient ischemic attack (TIA), and cerebral infarction without residual deficits
CPT/HCPCS: 74176; 76870; 80053; 81001; 83690; 85025; 93976; 96361; 96374; J1885; J2405